=== PATIENT | male | born 1965 | race Two or more races ===

== ENCOUNTER 2017-05-23 20:23 | Inpatient (IN) | payer OTHER ==
[~2017-05-23] VITALS: Ht 182.9 cm; Wt 86.8 kg
[2017-05-23] MEDS ORDERED: ACETAMINOPHEN 325 MG TAB PO ONE (20:45)
[2017-05-23] MEDS ORDERED: cloNIDine HCL 0.1 MG TAB PO ONE (20:45)
[2017-05-23] MEDS ORDERED: SODIUM CHLORIDE 0.9% 1,000 ML IVB ONE (22:10)
[2017-05-23] MEDS ORDERED: ONDANSETRON HCL 4 MG/2 ML VIAL IV ONE (22:15)
[2017-05-23] MEDS ORDERED: KETOROLAC TROMETH 30 MG/ML 1ML VIAL IM ONE (22:15)
[2017-05-23] MEDS ORDERED: PROMETHAZINE W/CODEINE 5 ML ORAL SYRUP PO ONE (22:15)
[2017-05-23 22:28] LABS: Basophils # (auto) 0.1 uL; Eosinophils # (auto) 0.3 uL; Eosinophils % (auto) 2.4 % (0.0-7.0); Hemoglobin 13.7 g/dL (13.5-17.5); Lymphocytes # (auto) 1.1 uL; Lymphocytes % (auto) 9.1 % (10.0-50.0); Mean Corpuscular Hemoglobin 31.3 pg (28.0-32.0); Mean Corpuscular Hgb Conc. 34.2 g/dL (32.0-36.0); Mean Corpuscular Volume 91.3 fL (80.0-100.0); Monocytes # (auto) 1.1 uL; Monocytes % (auto) 9.1 % (0.0-12.0); Neutrophils # (auto) 9.5 uL; Neutrophils % (auto) 78.4 % (37.0-80.0); Nucleated Red Blood Cells % 0.1 %; Platelet Count (auto) 300 10^3/uL (140-450); Red Blood Cells 4.38 10^6/uL (4.5-5.90); Red Cell Distribution Width 12.8 % (11.8-14.3); White Blood Cell 12.2 10^3/uL (4.4-10.8)
[2017-05-23] MEDS ORDERED: LORazepam 2MG/ML-1ML VIAL IV ONE (22:45)
[2017-05-23 22:47] LABS: Alanine Aminotransferase 73 U/L (16-61); Albumin 2.6 g/dL (3.4-5.0); Alkaline Phosphatase 97 U/L (45-117); Anion Gap 11 (5-15); Aspartate Aminotransferase 76 U/L (15-37); BUN/Creatinine Ratio 14.7; Bilirubin, Total 0.3 mg/dL (0.2-1.0); Blood Urea Nitrogen 11 mg/dL (7-18); Calcium 8.4 mg/dL (8.5-10.1); Carbon Dioxide 22 mmol/L (21-32); Chloride 100 mmol/L (98-107); GFR African American 140 mL/min; GFR Non-African American 116 mL/min; Glucose 126 mg/dL (74-106); Potassium 3.6 mmol/L (3.5-5.1); Sodium 133 mmol/L (136-145); Total Protein 7.8 g/dL (6.4-8.2)
[2017-05-23 23:29] LABS: INR 1.2 (0.9-1.15); Partial Thromboplastin Time 35.2 sec (22.64-33.71); Prothrombin Time 13.1 sec (9.37-12.3)
[2017-05-24] MEDS ORDERED: CLINDAMYCIN 900MG IV 50 ML IV ONE (01:30)
[2017-05-24] MEDS ORDERED: PIPERACILLIN-TAZOB 3.375GM 50 ML IV ONE (01:30)
[2017-05-24] MEDS ORDERED: ALBUTEROL SULF 2.5 MG/0.5ML(0.5%) NEB SOLN NEB PRN (03:15)
[2017-05-24] MEDS ORDERED: ONDANSETRON HCL 4 MG/2 ML VIAL IV PRN (03:15)
[2017-05-24] MEDS ORDERED: NITROGLYCERIN 0.4 MG SL TAB SL PRN (03:15)
[2017-05-24] MEDS ORDERED: DEXTROSE (50%) 50ML SYRG IV PRN (03:15)
[2017-05-24] MEDS ORDERED: IPRATROPIUM BROM 0.5 MG/2.5ML INH SOL NEB PRN (03:15)
[2017-05-24] MEDS ORDERED: MORPHINE SULFATE 4 MG/ML SYR/VIAL IV PRN ×2 (03:15)
[2017-05-24 04:28] LABS: Basophils # (auto) 0 uL; Basophils % (auto) 0.4 % (0.0-2.0); Eosinophils # (auto) 0.3 uL; Eosinophils % (auto) 3.1 % (0.0-7.0); Hematocrit 38.4 % (41.0-53.0); Hemoglobin 13.2 g/dL (13.5-17.5); Lymphocytes # (auto) 1.2 uL; Lymphocytes % (auto) 11.5 % (10.0-50.0); Mean Corpuscular Hemoglobin 31.3 pg (28.0-32.0); Mean Corpuscular Hgb Conc. 34.3 g/dL (32.0-36.0); Mean Corpuscular Volume 91.3 fL (80.0-100.0); Monocytes # (auto) 1.3 uL; Neutrophils # (auto) 7.8 uL; Nucleated Red Blood Cells % 0.1 %; Platelet Count (auto) 282 10^3/uL (140-450); Red Cell Distribution Width 12.7 % (11.8-14.3); White Blood Cell 10.7 10^3/uL (4.4-10.8)
[2017-05-24 04:48] LABS: Calcium 8.3 mg/dL (8.5-10.1)
[2017-05-24] MEDS ORDERED: LISINOPRIL 20 MG TAB PO ONE (06:30)
[2017-05-24] MEDS: GABAPENTIN 300 MG CAP PO SCH ×3 (06:41→21:30)
[2017-05-24] MEDS: ACETAMINOPHEN 500 MG TAB PO PRN ×2 (06:41→17:04)
[2017-05-24] MEDS: ACCU-CHEK COMFORT CURVE STRIP VI SCH ×4 (06:46→21:30)
[2017-05-24] MEDS: InsuLIN REG 1unit/0.01ml Soln (100units/ml) SC SCH ×4 (06:47→21:31)
[2017-05-24 07:20] VITALS: BP 171/109
[2017-05-24] MEDS ORDERED: GABA-521 PO (07:36)
[2017-05-24] MEDS ORDERED: METF-370 PO (07:36)
[2017-05-24] MEDS ORDERED: HYDR25TA4 PO (07:36)
[2017-05-24] MEDS ORDERED: GLIP-116 PO (07:36)
[2017-05-24] MEDS ORDERED: LEVO750T2 PO (07:36)
[2017-05-24] MEDS ORDERED: LISI-646 PO (07:36)
[2017-05-24] MEDS ORDERED: DOXYCYCLINE HYC 100MG/250ML 250 ML IV SCH (08:00)
[2017-05-24 08:49] LABS: Potassium 3.3 mmol/L (3.5-5.1)
[2017-05-24 09:00] VITALS: BP 167/103
[2017-05-24] MEDS: HYDROcodone-ACET 5/325MG TAB PO PRN ×2 (10:57→21:19)
[2017-05-24] MEDS ORDERED: cloNIDine HCL 0.1 MG TAB PO ONE ×2 (12:45→13:00)
[2017-05-24 13:00] VITALS: BP 187/113
[2017-05-24 13:18] VITALS: BP 167/103
[2017-05-24] MEDS ORDERED: POTASSIUM CHL 20 Meq TABLET PO ONE (14:15)
[2017-05-24] MEDS ORDERED: cefTRIAXone 1GM/10ml IVPUSH 10 ML IV ONE (14:15)
[2017-05-24] MEDS ORDERED: HCTZ 25 MG TAB PO ONE (14:30)
[2017-05-24] MEDS ORDERED: AZITHROMYCIN 500MG/ 250ML 250 ML IV ONE (14:30)
[2017-05-24 16:47] VITALS: BP 176/108
[2017-05-24] MEDS: LABETALOL HCL 5 MG/ML ML 20ML VIAL IV PRN (17:00)
[2017-05-24] MEDS: ALBUTEROL SULF 2.5 MG/0.5ML(0.5%) NEB SOLN NEB SCH (19:22)
[2017-05-24] MEDS: IPRATROPIUM BROM 0.5 MG/2.5ML INH SOL NEB SCH (19:22)
[2017-05-24 22:00] VITALS: BP 154/88
[2017-05-25] MEDS: ACETYLCYSTEINE 10 %(100MG/ML) SOL 4ML NEB SCH ×5 (00:47→23:41)
[2017-05-25] MEDS: IPRATROPIUM BROM 0.5 MG/2.5ML INH SOL NEB SCH ×6 (00:47→23:41)
[2017-05-25] MEDS: ALBUTEROL SULF 2.5 MG/0.5ML(0.5%) NEB SOLN NEB SCH ×6 (00:47→23:41)
[2017-05-25] MEDS: HYDROcodone-ACET 5/325MG TAB PO PRN ×3 (03:43→22:20)
[2017-05-25 05:00] VITALS: BP 137/89
[2017-05-25 05:36] LABS: Basophils # (auto) 0.1 uL; Basophils % (auto) 0.5 % (0.0-2.0); Eosinophils # (auto) 0.3 uL; Hematocrit 37.1 % (41.0-53.0); Lymphocytes # (auto) 1.1 uL; Lymphocytes % (auto) 10.7 % (10.0-50.0); Mean Corpuscular Hgb Conc. 35.2 g/dL (32.0-36.0); Mean Corpuscular Volume 90.8 fL (80.0-100.0); Monocytes # (auto) 1.2 uL; Monocytes % (auto) 11.6 % (0.0-12.0); Neutrophils # (auto) 7.6 uL; Neutrophils % (auto) 74.2 % (37.0-80.0); Nucleated Red Blood Cells % 0.1 %; Platelet Count (auto) 362 10^3/uL (140-450); Red Blood Cells 4.08 10^6/uL (4.5-5.90); Red Cell Distribution Width 12.7 % (11.8-14.3); White Blood Cell 10.3 10^3/uL (4.4-10.8)
[2017-05-25 05:57] LABS: BUN/Creatinine Ratio 15.3; Calcium 8.6 mg/dL (8.5-10.1); Potassium 4.6 mmol/L (3.5-5.1)
[2017-05-25] MEDS: ACCU-CHEK COMFORT CURVE STRIP VI SCH ×4 (06:24→22:00)
[2017-05-25] MEDS: InsuLIN REG 1unit/0.01ml Soln (100units/ml) SC SCH ×4 (06:24→22:59)
[2017-05-25] MEDS: GABAPENTIN 300 MG CAP PO SCH ×3 (06:24→22:19)
[2017-05-25 08:14] VITALS: BP 163/91
[2017-05-25] MEDS ORDERED: LISINOPRIL 20 MG TAB PO SCH (10:00)
[2017-05-25] MEDS: AZITHROMYCIN 500MG/ 250ML 250 ML IV SCH (10:15)
[2017-05-25] MEDS: cefTRIAXone 1GM/10ml IVPUSH 10 ML IV SCH (10:15)
[2017-05-25] MEDS: HCTZ 25 MG TAB PO SCH (10:16)
[2017-05-25] MEDS: POTASSIUM CHL 20 Meq TABLET PO SCH (10:16)
[2017-05-25] MEDS ORDERED: IBUPROFEN 400 MG TAB PO PRN (12:45)
[2017-05-25] MEDS ORDERED: IBUPROFEN 400 MG TAB PO ONE (12:45)
[2017-05-25 13:23] VITALS: BP 148/105
[2017-05-25] MEDS: LABETALOL HCL 5 MG/ML ML 20ML VIAL IV PRN ×2 (16:14→23:35)
[2017-05-25 17:16] VITALS: BP 181/105
[2017-05-25 22:00] VITALS: BP 183/100
[2017-05-25] MEDS: LISINOPRIL 20 MG TAB PO SCH (22:19)
[2017-05-25] MEDS: guaiFENesin-DM 100/10mg/5ml SYR PO PRN (22:20)
[2017-05-25] MEDS: ACETAMINOPHEN 500 MG TAB PO PRN (23:50)
[2017-05-26 05:38] VITALS: BP 132/113
[2017-05-26] MEDS: ACCU-CHEK COMFORT CURVE STRIP VI SCH ×4 (06:35→22:06)
[2017-05-26] MEDS: InsuLIN REG 1unit/0.01ml Soln (100units/ml) SC SCH ×4 (06:37→22:06)
[2017-05-26] MEDS: HYDROcodone-ACET 5/325MG TAB PO PRN ×2 (06:40→22:08)
[2017-05-26] MEDS: GABAPENTIN 300 MG CAP PO SCH ×3 (06:40→22:05)
[2017-05-26] MEDS: IPRATROPIUM BROM 0.5 MG/2.5ML INH SOL NEB SCH ×4 (08:14→23:59)
[2017-05-26] MEDS: ALBUTEROL SULF 2.5 MG/0.5ML(0.5%) NEB SOLN NEB SCH ×4 (08:14→23:58)
[2017-05-26] MEDS: ACETYLCYSTEINE 10 %(100MG/ML) SOL 4ML NEB SCH ×4 (08:17→23:59)
[2017-05-26 08:27] VITALS: BP 148/83
[2017-05-26] MEDS: cefTRIAXone 1GM/10ml IVPUSH 10 ML IV SCH (10:03)
[2017-05-26] MEDS: HCTZ 25 MG TAB PO SCH (10:04)
[2017-05-26] MEDS: LISINOPRIL 20 MG TAB PO SCH ×2 (10:05→22:06)
[2017-05-26] MEDS: POTASSIUM CHL 20 Meq TABLET PO SCH (10:05)
[2017-05-26] MEDS: AZITHROMYCIN 500MG/ 250ML 250 ML IV SCH (10:05)
[2017-05-26] MEDS: ACETAMINOPHEN 500 MG TAB PO PRN (10:43)
[2017-05-26] MEDS ORDERED: SODIUM CHLORIDE 0.9% 1,000 ML IV ONE (10:45)
[2017-05-26] MEDS ORDERED: POTASSIUM CHL 20 Meq TABLET PO ONE (10:45)
[2017-05-26] MEDS: LABETALOL HCL 5 MG/ML ML 20ML VIAL IV PRN (11:42)
[2017-05-26 12:02] VITALS: BP 166/107
[2017-05-26] MEDS: ACETAMINOPHEN 325 MG TAB PO PRN ×2 (15:18→19:47)
[2017-05-26] MEDS: amLODIPine BESYLATE 5 MG TAB PO SCH (15:23)
[2017-05-26 15:55] VITALS: BP 150/97
[2017-05-26] MEDS: guaiFENesin-DM 100/10mg/5ml SYR PO PRN (22:08)
[2017-05-26 22:48] VITALS: BP 147/104
[2017-05-27] MEDS: ACETAMINOPHEN 325 MG TAB PO PRN (04:05)
[2017-05-27 05:17] VITALS: BP 164/118
[2017-05-27] MEDS: LABETALOL HCL 5 MG/ML ML 20ML VIAL IV PRN ×2 (05:22→21:02)
[2017-05-27] MEDS: GABAPENTIN 300 MG CAP PO SCH ×3 (05:34→22:24)
[2017-05-27] MEDS: HYDROcodone-ACET 5/325MG TAB PO PRN ×3 (05:35→18:15)
[2017-05-27] MEDS: guaiFENesin-DM 100/10mg/5ml SYR PO PRN ×3 (05:42→18:12)
[2017-05-27 05:54] LABS: Basophils # (auto) 0 uL; Basophils % (auto) 0.4 % (0.0-2.0); Eosinophils # (auto) 0.3 uL; Hemoglobin 13.9 g/dL (13.5-17.5); Lymphocytes % (auto) 8.6 % (10.0-50.0); Monocytes # (auto) 1.2 uL; Neutrophils % (auto) 78.8 % (37.0-80.0); Nucleated Red Blood Cells % 0.1 %
[2017-05-27 05:56] LABS: Eosinophils % (auto) 2.7 % (0.0-7.0); Hematocrit 39.9 % (41.0-53.0); Mean Corpuscular Hemoglobin 31.5 pg (28.0-32.0); Mean Corpuscular Volume 90.1 fL (80.0-100.0); Monocytes % (auto) 9.5 % (0.0-12.0); Neutrophils # (auto) 9.6 uL; Platelet Count (auto) 501 10^3/uL (140-450); Red Blood Cells 4.43 10^6/uL (4.5-5.90); Red Cell Distribution Width 12.7 % (11.8-14.3); White Blood Cell 12.2 10^3/uL (4.4-10.8)
[2017-05-27 06:02] LABS: Calcium 8.8 mg/dL (8.5-10.1); Potassium 4.6 mmol/L (3.5-5.1)
[2017-05-27] MEDS: InsuLIN REG 1unit/0.01ml Soln (100units/ml) SC SCH ×4 (06:37→22:24)
[2017-05-27] MEDS: ACCU-CHEK COMFORT CURVE STRIP VI SCH ×4 (06:37→22:24)
[2017-05-27] MEDS: IPRATROPIUM BROM 0.5 MG/2.5ML INH SOL NEB SCH ×3 (06:48→19:27)
[2017-05-27] MEDS: ACETYLCYSTEINE 10 %(100MG/ML) SOL 4ML NEB SCH ×3 (06:48→19:27)
[2017-05-27] MEDS: ALBUTEROL SULF 2.5 MG/0.5ML(0.5%) NEB SOLN NEB SCH ×3 (06:48→19:27)
[2017-05-27 08:00] VITALS: BP 135/92
[2017-05-27] MEDS: cefTRIAXone 1GM/10ml IVPUSH 10 ML IV SCH (09:29)
[2017-05-27] MEDS: LISINOPRIL 20 MG TAB PO SCH (10:00)
[2017-05-27] MEDS: amLODIPine BESYLATE 5 MG TAB PO SCH ×2 (10:00→12:18)
[2017-05-27] MEDS: HCTZ 25 MG TAB PO SCH ×2 (10:00→12:18)
[2017-05-27] MEDS: POTASSIUM CHL 20 Meq TABLET PO SCH (10:36)
[2017-05-27] MEDS: AZITHROMYCIN 500MG/ 250ML 250 ML IV SCH (10:36)
[2017-05-27] MEDS ORDERED: diphenhdrAMINE HCL 25 MG CAP PO ONE (10:45)
[2017-05-27] MEDS ORDERED: FLUCONAZOLE 200MG/100ML 100 ML IV ONE (11:00)
[2017-05-27 11:23] LABS: Albumin 2.5 g/dL (3.4-5.0); Bilirubin, Direct 0.1 mg/dL (0-0.2); Bilirubin, Total 0.5 mg/dL (0.2-1.0); Total Protein 8.3 g/dL (6.4-8.2)
[2017-05-27 12:00] VITALS: BP 148/107
[2017-05-27 14:31] VITALS: BP 148/107
[2017-05-27] MEDS: FLUCONAZOLE 200MG/100ML 100 ML IV SCH (15:01)
[2017-05-27 16:50] VITALS: BP 144/96
[2017-05-27] MEDS ORDERED: cefTRIAXone 1GM/10ml IVPUSH 10 ML IV ONE (18:00)
[2017-05-27] MEDS ORDERED: TEMAZEPAM 15 MG CAP PO ONE (20:45)
[2017-05-27 22:46] VITALS: BP 134/98
[2017-05-28] MEDS: ACETYLCYSTEINE 10 %(100MG/ML) SOL 4ML NEB SCH ×3 (00:55→18:42)
[2017-05-28] MEDS: IPRATROPIUM BROM 0.5 MG/2.5ML INH SOL NEB SCH ×4 (00:55→18:42)
[2017-05-28] MEDS: ALBUTEROL SULF 2.5 MG/0.5ML(0.5%) NEB SOLN NEB SCH ×4 (00:55→18:42)
[2017-05-28 05:25] VITALS: BP 130/102
[2017-05-28] MEDS: glipiZIDE 5 MG TAB PO SCH (06:26)
[2017-05-28] MEDS: GABAPENTIN 300 MG CAP PO SCH ×3 (06:38→22:31)
[2017-05-28] MEDS: ACCU-CHEK COMFORT CURVE STRIP VI SCH ×4 (06:38→22:16)
[2017-05-28] MEDS: InsuLIN REG 1unit/0.01ml Soln (100units/ml) SC SCH ×4 (06:38→22:31)
[2017-05-28] MEDS: HYDROcodone-ACET 5/325MG TAB PO PRN ×3 (06:59→22:33)
[2017-05-28 09:06] VITALS: BP 153/96
[2017-05-28 09:24] LABS: Basophils # (auto) 0.1 uL; Eosinophils # (auto) 0.3 uL; Eosinophils % (auto) 2.5 % (0.0-7.0); Nucleated Red Blood Cells % 0.1 %; White Blood Cell 13.6 10^3/uL (4.4-10.8)
[2017-05-28 09:27] LABS: Basophils % (auto) 0.7 % (0.0-2.0); Hematocrit 41.9 % (41.0-53.0); Hemoglobin 14.4 g/dL (13.5-17.5); Lymphocytes # (auto) 1.5 uL; Lymphocytes % (auto) 10.9 % (10.0-50.0); Mean Corpuscular Hemoglobin 31.1 pg (28.0-32.0); Mean Corpuscular Hgb Conc. 34.4 g/dL (32.0-36.0); Mean Corpuscular Volume 90.5 fL (80.0-100.0); Monocytes # (auto) 1.6 uL; Monocytes % (auto) 11.6 % (0.0-12.0); Neutrophils # (auto) 10.1 uL; Neutrophils % (auto) 74.3 % (37.0-80.0); Platelet Count (auto) 514 10^3/uL (140-450); Red Blood Cells 4.63 10^6/uL (4.5-5.90)
[2017-05-28 09:41] LABS: BUN/Creatinine Ratio 13.8; Potassium 4.6 mmol/L (3.5-5.1)
[2017-05-28] MEDS ORDERED: MEPERIDINE HCL (25 MG/ML) 1ML VIAL IM ONE (10:00)
[2017-05-28] MEDS ORDERED: VANCOMYCIN PER PHARMACY 0 MG IV SCH (10:00)
[2017-05-28] MEDS: POTASSIUM CHL 20 Meq TABLET PO SCH (10:00)
[2017-05-28] MEDS ORDERED: CEFTRIAXONE SODIUM 2 GM in D5W 5% 50 ML IV SCH (10:00)
[2017-05-28] MEDS ORDERED: LIDOCAINE HCL 2 % INJ 2ML MPF NEB ONE (10:00)
[2017-05-28] MEDS: amLODIPine BESYLATE 5 MG TAB PO SCH (10:00)
[2017-05-28] MEDS ORDERED: BENZOCAINE (DENTAL) 20 % SPRAY 60ML MT ONE (10:07)
[2017-05-28] MEDS ORDERED: LIDOCAINE 2%HCL (LOCAL ANESTH.) INJ 20ML MDV ONE (10:07)
[2017-05-28] MEDS ORDERED: SODIUM CHLORIDE LOCK 30 ML ONE (10:07)
[2017-05-28] MEDS ORDERED: EPINEPHrine HCL 1 MG/1 ML AMP ONE (10:08)
[2017-05-28] MEDS ORDERED: LIDOCAINE HCL 2% TOP JELLY 5ML TOP ONE (10:08)
[2017-05-28] MEDS: AZITHROMYCIN 500MG/ 250ML 250 ML IV SCH (10:27)
[2017-05-28] MEDS: SODIUM CHLORIDE 0.9% 1,000 ML IV SCH ×2 (10:27→19:10)
[2017-05-28 10:53] LABS: Albumin 2.5 g/dL (3.4-5.0); Bilirubin, Direct 0.1 mg/dL (0-0.2); Bilirubin, Total 0.3 mg/dL (0.2-1.0); Total Protein 8.4 g/dL (6.4-8.2)
[2017-05-28 11:14] LABS: Urine Bacteria NONE SEEN /hpf (None Seen); Urine Blood 1+ /uL (Negative); Urine Specific Gravity 1.008 (1.001-1.035); Urine WBC 1 /hpf (0 - 3)
[2017-05-28] MEDS ORDERED: PIPERACILLIN-TAZOB 3.375GM 50 ML IV SCH ×2 (12:00→16:15)
[2017-05-28 12:48] VITALS: BP 154/116
[2017-05-28] MEDS: MIDAZOLAM HCL 5 MG/ML-1ML VIAL ONE ×7 (13:40→13:52)
[2017-05-28] MEDS ORDERED: IOHEXOL 300 MG/ML 100ML BOTTLE IJ ONE (15:13)
[2017-05-28] MEDS ORDERED: LABETALOL HCL 5 MG/ML ML 20ML VIAL IV PRN (15:30)
[2017-05-28] MEDS ORDERED: LABETALOL HCL 5 MG/ML ML 20ML VIAL IV ONE (15:30)
[2017-05-28] MEDS: FLUCONAZOLE 200MG/100ML 100 ML IV SCH (15:51)
[2017-05-28] MEDS ORDERED: VANCOMYCIN 1,250 MG in D5W 5% 250 ML IV SCH (16:00)
[2017-05-28 17:12] VITALS: BP 136/107
[2017-05-28] MEDS: PIPERACILLIN-TAZOB 3.375GM 50 ML IV SCH ×2 (17:12→22:32)
[2017-05-28] MEDS: VANCOMYCIN 1,250 MG in D5W 5% 250 ML IV SCH (20:30)
[2017-05-28] MEDS: guaiFENesin-DM 100/10mg/5ml SYR PO PRN (21:57)
[2017-05-28] MEDS: LABETALOL HCL 5 MG/ML ML 20ML VIAL IV PRN (21:57)
[2017-05-28 22:00] VITALS: BP 161/101
[2017-05-28] MEDS ORDERED: TEMAZEPAM 15 MG CAP PO ONE (23:15)
[2017-05-29] MEDS: SODIUM CHLORIDE 0.9% 1,000 ML IV SCH ×2 (05:00→15:14)
[2017-05-29 05:30] VITALS: BP 152/102
[2017-05-29] MEDS: PIPERACILLIN-TAZOB 3.375GM 50 ML IV SCH ×4 (05:41→22:26)
[2017-05-29] MEDS: LABETALOL HCL 5 MG/ML ML 20ML VIAL IV PRN ×2 (06:06→11:32)
[2017-05-29] MEDS: GABAPENTIN 300 MG CAP PO SCH ×3 (06:07→22:26)
[2017-05-29] MEDS: ACETAMINOPHEN 325 MG TAB PO PRN ×3 (06:07→20:17)
[2017-05-29] MEDS: ACCU-CHEK COMFORT CURVE STRIP VI SCH ×4 (06:08→22:26)
[2017-05-29] MEDS: glipiZIDE 5 MG TAB PO SCH (06:31)
[2017-05-29] MEDS: InsuLIN REG 1unit/0.01ml Soln (100units/ml) SC SCH ×4 (06:32→22:29)
[2017-05-29 06:46] LABS: Basophils # (auto) 0.1 uL; Eosinophils # (auto) 0.3 uL; Lymphocytes # (auto) 1.2 uL
[2017-05-29 06:49] LABS: Basophils % (auto) 0.6 % (0.0-2.0); Eosinophils % (auto) 2.7 % (0.0-7.0); Hematocrit 41.1 % (41.0-53.0); Hemoglobin 14.1 g/dL (13.5-17.5); Lymphocytes % (auto) 9.3 % (10.0-50.0); Mean Corpuscular Hgb Conc. 34.2 g/dL (32.0-36.0); Mean Corpuscular Volume 90.7 fL (80.0-100.0); Monocytes # (auto) 1.1 uL; Monocytes % (auto) 8.9 % (0.0-12.0); Neutrophils # (auto) 10.1 uL; Neutrophils % (auto) 78.5 % (37.0-80.0); Platelet Count (auto) 545 10^3/uL (140-450); Red Blood Cells 4.53 10^6/uL (4.5-5.90); White Blood Cell 12.8 10^3/uL (4.4-10.8)
[2017-05-29] MEDS: IPRATROPIUM BROM 0.5 MG/2.5ML INH SOL NEB SCH ×5 (07:04→20:15)
[2017-05-29] MEDS: ALBUTEROL SULF 2.5 MG/0.5ML(0.5%) NEB SOLN NEB SCH ×5 (07:04→20:15)
[2017-05-29] MEDS: ACETYLCYSTEINE 10 %(100MG/ML) SOL 4ML NEB SCH ×5 (07:04→18:43)
[2017-05-29 07:05] LABS: Albumin 2.6 g/dL (3.4-5.0); Calcium 9.3 mg/dL (8.5-10.1); Potassium 5.1 mmol/L (3.5-5.1)
[2017-05-29 07:09] LABS: BUN/Creatinine Ratio 18.7
[2017-05-29 07:14] LABS: Bilirubin, Total 0.4 mg/dL (0.2-1.0); Total Protein 8.6 g/dL (6.4-8.2)
[2017-05-29 08:26] VITALS: BP 142/92
[2017-05-29] MEDS: VANCOMYCIN 1,250 MG in D5W 5% 250 ML IV SCH ×2 (08:34→20:00)
[2017-05-29] MEDS: amLODIPine BESYLATE 5 MG TAB PO SCH (09:53)
[2017-05-29] MEDS: AZITHROMYCIN 500MG/ 250ML 250 ML IV SCH (09:53)
[2017-05-29] MEDS: POTASSIUM CHL 20 Meq TABLET PO SCH (09:55)
[2017-05-29 11:21] LABS: INR 1.28 (0.9-1.15); Partial Thromboplastin Time 32.7 sec (22.64-33.71)
[2017-05-29] MEDS: guaiFENesin-DM 100/10mg/5ml SYR PO PRN ×2 (11:26→17:16)
[2017-05-29 11:45] VITALS: BP 155/102
[2017-05-29] MEDS: FLUCONAZOLE 200MG/100ML 100 ML IV SCH (13:26)
[2017-05-29 14:41] LABS: Hepatitis B Surface Antigen Negative (Negative)
[2017-05-29 14:53] LABS: Hepatitis B Core IgM Negative; Hepatitis C Antibody Negative (Negative)
[2017-05-29 14:55] LABS: Hepatitis A Ab IgM Negative
[2017-05-29 16:45] VITALS: BP 129/62
[2017-05-29 20:00] VITALS: BP 136/83
[2017-05-29] MEDS: HYDROcodone-ACET 5/325MG TAB PO PRN (22:27)
[2017-05-30] MEDS: ALBUTEROL SULF 2.5 MG/0.5ML(0.5%) NEB SOLN NEB SCH ×4 (00:32→11:50)
[2017-05-30] MEDS: IPRATROPIUM BROM 0.5 MG/2.5ML INH SOL NEB SCH ×4 (00:32→11:50)
[2017-05-30] MEDS: ACETYLCYSTEINE 10 %(100MG/ML) SOL 4ML NEB SCH ×4 (00:33→11:50)
[2017-05-30] MEDS: SODIUM CHLORIDE 0.9% 1,000 ML IV SCH ×3 (01:00→21:30)
[2017-05-30] MEDS: PIPERACILLIN-TAZOB 3.375GM 50 ML IV SCH (04:56)
[2017-05-30 05:00] VITALS: BP 160/102
[2017-05-30] MEDS: GABAPENTIN 300 MG CAP PO SCH ×3 (05:50→22:24)
[2017-05-30] MEDS: HYDROcodone-ACET 5/325MG TAB PO PRN ×4 (05:51→21:31)
[2017-05-30] MEDS: ACCU-CHEK COMFORT CURVE STRIP VI SCH ×4 (06:20→22:24)
[2017-05-30] MEDS: glipiZIDE 5 MG TAB PO SCH (06:20)
[2017-05-30] MEDS: InsuLIN REG 1unit/0.01ml Soln (100units/ml) SC SCH ×4 (06:21→22:26)
[2017-05-30 06:33] LABS: Eosinophils # (auto) 0.3 uL; Hemoglobin 13.9 g/dL (13.5-17.5)
[2017-05-30 06:39] LABS: Basophils # (auto) 0.1 uL; Basophils % (auto) 0.6 % (0.0-2.0); Eosinophils % (auto) 2.7 % (0.0-7.0); Hematocrit 40.5 % (41.0-53.0); Lymphocytes # (auto) 1.1 uL; Lymphocytes % (auto) 9.6 % (10.0-50.0); Mean Corpuscular Hemoglobin 30.6 pg (28.0-32.0); Mean Corpuscular Hgb Conc. 34.2 g/dL (32.0-36.0); Mean Corpuscular Volume 89.4 fL (80.0-100.0); Monocytes # (auto) 1.1 uL; Monocytes % (auto) 9.5 % (0.0-12.0); Neutrophils % (auto) 77.6 % (37.0-80.0); Platelet Count (auto) 527 10^3/uL (140-450); Red Blood Cells 4.53 10^6/uL (4.5-5.90); Red Cell Distribution Width 12.7 % (11.8-14.3); White Blood Cell 11.6 10^3/uL (4.4-10.8)
[2017-05-30 06:52] LABS: Albumin 2.5 g/dL (3.4-5.0); BUN/Creatinine Ratio 18.3; Bilirubin, Total 0.4 mg/dL (0.2-1.0); Calcium 8.8 mg/dL (8.5-10.1); Potassium 4.1 mmol/L (3.5-5.1); Total Protein 8.5 g/dL (6.4-8.2)
[2017-05-30 07:47] VITALS: BP 132/102
[2017-05-30] MEDS: POTASSIUM CHL 20 Meq TABLET PO SCH (10:14)
[2017-05-30] MEDS: amLODIPine BESYLATE 5 MG TAB PO SCH (10:15)
[2017-05-30] MEDS ORDERED: AZITHROMYCIN 500MG/ 250ML 250 ML IV SCH (10:45)
[2017-05-30] MEDS: guaiFENesin-DM 100/10mg/5ml SYR PO PRN ×3 (11:41→21:32)
[2017-05-30] MEDS ORDERED: PIPERACILLIN-TAZOB 3.375GM 50 ML IV SCH (12:00)
[2017-05-30 12:22] VITALS: BP 174/56
[2017-05-30] MEDS ORDERED: FLUCONAZOLE 200MG/100ML 100 ML IV SCH (13:30)
[2017-05-30] MEDS: VANCOMYCIN 1GM/250ML 250 ML IV SCH ×2 (15:30→21:31)
[2017-05-30] MEDS: LABETALOL HCL 5 MG/ML ML 20ML VIAL IV PRN (16:14)
[2017-05-30 17:08] VITALS: BP 168/109
[2017-05-30 17:16] VITALS: BP 172/81
[2017-05-30 21:50] VITALS: BP 146/96
[2017-05-31] MEDS: ALBUTEROL SULF 2.5 MG/0.5ML(0.5%) NEB SOLN NEB SCH ×4 (00:32→18:35)
[2017-05-31] MEDS: IPRATROPIUM BROM 0.5 MG/2.5ML INH SOL NEB SCH ×4 (00:32→18:35)
[2017-05-31] MEDS: ACETYLCYSTEINE 10 %(100MG/ML) SOL 4ML NEB SCH ×4 (00:32→18:00)
[2017-05-31] MEDS: VANCOMYCIN 1GM/250ML 250 ML IV SCH ×2 (02:59→09:27)
[2017-05-31] MEDS: GABAPENTIN 300 MG CAP PO SCH ×3 (04:44→22:47)
[2017-05-31] MEDS: SODIUM CHLORIDE 0.9% 1,000 ML IV SCH ×2 (04:44→18:02)
[2017-05-31] MEDS: InsuLIN REG 1unit/0.01ml Soln (100units/ml) SC SCH ×4 (04:45→22:47)
[2017-05-31] MEDS: glipiZIDE 5 MG TAB PO SCH (04:45)
[2017-05-31] MEDS: ACCU-CHEK COMFORT CURVE STRIP VI SCH ×4 (04:45→22:18)
[2017-05-31] MEDS: LABETALOL HCL 5 MG/ML ML 20ML VIAL IV PRN (04:46)
[2017-05-31 04:53] VITALS: BP 164/114
[2017-05-31 07:59] LABS: Eosinophils # (auto) 0.3 uL; Hemoglobin 12.8 g/dL (13.5-17.5); Lymphocytes # (auto) 1.2 uL; Red Cell Distribution Width 12.8 % (11.8-14.3)
[2017-05-31 08:01] LABS: Basophils # (auto) 0.1 uL; Basophils % (auto) 1.1 % (0.0-2.0); Eosinophils % (auto) 2.1 % (0.0-7.0); Hematocrit 36.5 % (41.0-53.0); Lymphocytes % (auto) 9.9 % (10.0-50.0); Mean Corpuscular Hemoglobin 31.6 pg (28.0-32.0); Mean Corpuscular Hgb Conc. 35.2 g/dL (32.0-36.0); Mean Corpuscular Volume 89.9 fL (80.0-100.0); Monocytes % (auto) 8.7 % (0.0-12.0); Neutrophils # (auto) 9.3 uL; Neutrophils % (auto) 78.2 % (37.0-80.0); Platelet Count (auto) 474 10^3/uL (140-450); Red Blood Cells 4.06 10^6/uL (4.5-5.90); White Blood Cell 11.8 10^3/uL (4.4-10.8)
[2017-05-31 08:25] LABS: Calcium 8.8 mg/dL (8.5-10.1); Potassium 4.4 mmol/L (3.5-5.1)
[2017-05-31 08:27] LABS: BUN/Creatinine Ratio 16.4
[2017-05-31 09:00] VITALS: BP 138/113
[2017-05-31] MEDS ORDERED: LEVOFLOXACIN 250 MG TAB PO SCH (10:00)
[2017-05-31] MEDS: POTASSIUM CHL 20 Meq TABLET PO SCH (11:18)
[2017-05-31] MEDS: amLODIPine BESYLATE 5 MG TAB PO SCH (11:19)
[2017-05-31] MEDS: HYDROcodone-ACET 5/325MG TAB PO PRN ×3 (11:37→20:36)
[2017-05-31 13:00] VITALS: BP 129/72
[2017-05-31] MEDS: guaiFENesin-DM 100/10mg/5ml SYR PO PRN ×2 (14:45→20:34)
[2017-05-31] MEDS: VANCOMYCIN 1,250 MG in D5W 5% 250 ML IV SCH ×2 (15:07→20:34)
[2017-05-31 17:00] VITALS: BP 139/82
[2017-05-31] MEDS ORDERED: MORPHINE SULFATE 4 MG/ML SYR/VIAL IV PRN (20:30)
[2017-05-31 22:00] VITALS: BP 144/91
[2017-06-01] MEDS: IPRATROPIUM BROM 0.5 MG/2.5ML INH SOL NEB SCH ×3 (00:48→19:32)
[2017-06-01] MEDS: ALBUTEROL SULF 2.5 MG/0.5ML(0.5%) NEB SOLN NEB SCH ×4 (00:48→19:33)
[2017-06-01] MEDS: SODIUM CHLORIDE 0.9% 1,000 ML IV SCH (02:53)
[2017-06-01] MEDS: VANCOMYCIN 1,250 MG in D5W 5% 250 ML IV SCH (02:53)
[2017-06-01 04:49] VITALS: BP 135/86
[2017-06-01] MEDS: ACCU-CHEK COMFORT CURVE STRIP VI SCH ×4 (06:22→22:18)
[2017-06-01] MEDS: InsuLIN REG 1unit/0.01ml Soln (100units/ml) SC SCH ×4 (06:22→22:00)
[2017-06-01] MEDS: GABAPENTIN 300 MG CAP PO SCH ×3 (06:36→21:40)
[2017-06-01] MEDS: glipiZIDE 5 MG TAB PO SCH (06:37)
[2017-06-01] MEDS: ACETYLCYSTEINE 10 %(100MG/ML) SOL 4ML NEB SCH ×4 (06:58→19:33)
[2017-06-01 08:21] LABS: Basophils # (auto) 0.1 uL; Eosinophils # (auto) 0.3 uL; Neutrophils % (auto) 76.4 % (37.0-80.0)
[2017-06-01] MEDS ORDERED: MIDAZOLAM HCL 1MG/1ML-2 ML VIAL ONE (08:22)
[2017-06-01] MEDS ORDERED: fentaNYL CITRATE 100 MCG/2 ML VL ONE (08:23)
[2017-06-01 08:25] LABS: Basophils % (auto) 0.9 % (0.0-2.0); Hematocrit 40.3 % (41.0-53.0); Hemoglobin 13.7 g/dL (13.5-17.5); Lymphocytes # (auto) 1.3 uL; Lymphocytes % (auto) 9.9 % (10.0-50.0); Mean Corpuscular Hemoglobin 30.7 pg (28.0-32.0); Mean Corpuscular Hgb Conc. 34.1 g/dL (32.0-36.0); Monocytes # (auto) 1.4 uL; Monocytes % (auto) 10.8 % (0.0-12.0); Platelet Count (auto) 480 10^3/uL (140-450); Red Blood Cells 4.48 10^6/uL (4.5-5.90)
[2017-06-01 08:36] LABS: Albumin 2.6 g/dL (3.4-5.0); BUN/Creatinine Ratio 14.9; Calcium 9.4 mg/dL (8.5-10.1); Potassium 5.4 mmol/L (3.5-5.1)
[2017-06-01 08:39] LABS: Bilirubin, Total 0.5 mg/dL (0.2-1.0)
[2017-06-01] MEDS ORDERED: LIDOCAINE 2%HCL (LOCAL ANESTH.) INJ 20ML MDV ONE (08:40)
[2017-06-01 09:00] VITALS: BP 151/102
[2017-06-01] MEDS ORDERED: LEVOFLOXACIN 250 MG TAB PO SCH (10:00)
[2017-06-01] MEDS: LEVOFLOXACIN 750MG 150 ML IV SCH (10:08)
[2017-06-01] MEDS: POTASSIUM CHL 20 Meq TABLET PO SCH (10:09)
[2017-06-01] MEDS: MEROPENEM 1gm/20ml IVPUSH 20 ML IV SCH ×2 (10:09→18:16)
[2017-06-01] MEDS: amLODIPine BESYLATE 5 MG TAB PO SCH (10:10)
[2017-06-01] MEDS: HYDROcodone-ACET 5/325MG TAB PO PRN ×3 (10:11→21:40)
[2017-06-01 12:30] VITALS: BP 119/78
[2017-06-01] MEDS: FLUCONAZOLE 200MG/100ML 100 ML IV SCH (13:17)
[2017-06-01] MEDS ORDERED: LIDOCAINE 1% HCL (LOCAL ANESTH.) INJ 20ML MDV ID ONE (15:15)
[2017-06-01 17:00] VITALS: BP 137/105
[2017-06-01] MEDS: guaiFENesin-DM 100/10mg/5ml SYR PO PRN ×2 (17:25→21:39)
[2017-06-01 22:00] VITALS: BP 133/92
[2017-06-01] MEDS: SODIUM CHLOR 0.9% PF (SALINE LOCK) 10ML VIAL IV SCH (22:18)
[2017-06-02] MEDS: IPRATROPIUM BROM 0.5 MG/2.5ML INH SOL NEB SCH ×4 (00:17→18:58)
[2017-06-02] MEDS: ACETYLCYSTEINE 10 %(100MG/ML) SOL 4ML NEB SCH ×4 (00:17→18:58)
[2017-06-02] MEDS: ALBUTEROL SULF 2.5 MG/0.5ML(0.5%) NEB SOLN NEB SCH ×4 (00:17→18:59)
[2017-06-02] MEDS: MEROPENEM 1gm/20ml IVPUSH 20 ML IV SCH ×3 (01:50→17:51)
[2017-06-02] MEDS: guaiFENesin-DM 100/10mg/5ml SYR PO PRN ×3 (05:09→22:37)
[2017-06-02] MEDS: HYDROcodone-ACET 5/325MG TAB PO PRN ×4 (05:09→22:37)
[2017-06-02 05:28] VITALS: BP 125/92
[2017-06-02] MEDS: GABAPENTIN 300 MG CAP PO SCH ×3 (06:13→22:19)
[2017-06-02 06:16] LABS: Potassium 4.2 mmol/L (3.5-5.1)
[2017-06-02 06:20] LABS: Albumin 2.4 g/dL (3.4-5.0); BUN/Creatinine Ratio 18.6; Calcium 8.8 mg/dL (8.5-10.1)
[2017-06-02 06:23] LABS: Bilirubin, Total 0.4 mg/dL (0.2-1.0); Total Protein 8.3 g/dL (6.4-8.2)
[2017-06-02] MEDS: InsuLIN REG 1unit/0.01ml Soln (100units/ml) SC SCH ×4 (07:00→22:00)
[2017-06-02] MEDS: glipiZIDE 5 MG TAB PO SCH (07:04)
[2017-06-02] MEDS: ACCU-CHEK COMFORT CURVE STRIP VI SCH ×4 (07:05→22:00)
[2017-06-02 09:00] VITALS: BP 138/98
[2017-06-02] MEDS: POTASSIUM CHL 20 Meq TABLET PO SCH (10:00)
[2017-06-02] MEDS: LEVOFLOXACIN 750MG 150 ML IV SCH (10:02)
[2017-06-02] MEDS: amLODIPine BESYLATE 5 MG TAB PO SCH (10:03)
[2017-06-02] MEDS: SODIUM CHLOR 0.9% PF (SALINE LOCK) 10ML VIAL IV SCH ×2 (10:03→22:19)
[2017-06-02] MEDS: FLUCONAZOLE 200MG/100ML 100 ML IV SCH ×2 (11:55→13:00)
[2017-06-02] MEDS ORDERED: LACTULOSE 20Gm/30ML SOLN PO ONE (12:30)
[2017-06-02] MEDS ORDERED: LACTULOSE 20Gm/30ML SOLN PO PRN (12:30)
[2017-06-02] MEDS: ACETAMINOPHEN 325 MG TAB PO PRN (14:10)
[2017-06-02 16:35] VITALS: BP 120/82
[2017-06-02] MEDS: Boost Glucose Control 8 Ounces PO SCH (18:15)
[2017-06-02] MEDS: PRO-STAT 64 30ML PO SCH (18:15)
[2017-06-02 22:00] VITALS: BP 154/91
[2017-06-02] MEDS: ZOLPIDEM TARTRATE 5 MG TAB PO PRN (23:57)
[2017-06-03] MEDS: IPRATROPIUM BROM 0.5 MG/2.5ML INH SOL NEB SCH ×4 (00:12→19:48)
[2017-06-03] MEDS: ALBUTEROL SULF 2.5 MG/0.5ML(0.5%) NEB SOLN NEB SCH ×4 (00:12→19:48)
[2017-06-03] MEDS: MEROPENEM 1gm/20ml IVPUSH 20 ML IV SCH ×3 (02:04→17:42)
[2017-06-03 05:00] VITALS: BP 126/103
[2017-06-03] MEDS: ACETAMINOPHEN 325 MG TAB PO PRN (05:14)
[2017-06-03] MEDS: GABAPENTIN 300 MG CAP PO SCH ×3 (06:06→22:00)
[2017-06-03] MEDS: ACETYLCYSTEINE 10 %(100MG/ML) SOL 4ML NEB SCH ×3 (06:21→19:48)
[2017-06-03 06:22] LABS: Basophils # (auto) 0.1 uL; Eosinophils # (auto) 0.2 uL; Hemoglobin 13.3 g/dL (13.5-17.5); Lymphocytes % (auto) 8.8 % (10.0-50.0); Mean Corpuscular Hemoglobin 30.5 pg (28.0-32.0); Mean Corpuscular Hgb Conc. 34.2 g/dL (32.0-36.0); Mean Corpuscular Volume 89.2 fL (80.0-100.0); Monocytes # (auto) 1.1 uL; Neutrophils # (auto) 8.6 uL; Neutrophils % (auto) 78.2 % (37.0-80.0); Platelet Count (auto) 407 10^3/uL (140-450); Red Blood Cells 4.36 10^6/uL (4.5-5.90); Red Cell Distribution Width 12.9 % (11.8-14.3)
[2017-06-03] MEDS: glipiZIDE 5 MG TAB PO SCH (06:33)
[2017-06-03 06:36] LABS: Albumin 2.5 g/dL (3.4-5.0); BUN/Creatinine Ratio 18.2; Bilirubin, Total 0.3 mg/dL (0.2-1.0); Calcium 9.2 mg/dL (8.5-10.1); Potassium 4.9 mmol/L (3.5-5.1); Total Protein 8.9 g/dL (6.4-8.2)
[2017-06-03] MEDS: ACCU-CHEK COMFORT CURVE STRIP VI SCH ×4 (07:00→22:00)
[2017-06-03] MEDS: InsuLIN REG 1unit/0.01ml Soln (100units/ml) SC SCH ×4 (07:00→22:00)
[2017-06-03 09:00] VITALS: BP 136/99
[2017-06-03] MEDS: Boost Glucose Control 8 Ounces PO SCH ×2 (10:09→17:42)
[2017-06-03] MEDS: PRO-STAT 64 30ML PO SCH ×2 (10:09→17:43)
[2017-06-03] MEDS: SODIUM CHLOR 0.9% PF (SALINE LOCK) 10ML VIAL IV SCH ×2 (10:22→22:00)
[2017-06-03] MEDS: LEVOFLOXACIN 750MG 150 ML IV SCH (10:22)
[2017-06-03] MEDS: amLODIPine BESYLATE 5 MG TAB PO SCH (10:23)
[2017-06-03] MEDS ORDERED: MICAFUNGIN SODIUM 100 MG in SODIUM CHL 0.9% 100 ML IV ONE (10:30)
[2017-06-03] MEDS ORDERED: AMIKACIN 0 ML IV SCH (11:30)
[2017-06-03 13:00] VITALS: BP 128/80
[2017-06-03] MEDS: AMIKACIN 1,500 MG in D5W 5% 100 ML IV SCH (13:44)
[2017-06-03] MEDS: guaiFENesin-DM 100/10mg/5ml SYR PO PRN ×2 (13:52→22:21)
[2017-06-03] MEDS: HYDROcodone-ACET 5/325MG TAB PO PRN ×2 (13:53→22:21)
[2017-06-03 17:00] VITALS: BP 126/85
[2017-06-03 22:00] VITALS: BP 127/84
[2017-06-03] MEDS: ZOLPIDEM TARTRATE 5 MG TAB PO PRN (23:31)
[2017-06-04] MEDS: MEROPENEM 1gm/20ml IVPUSH 20 ML IV SCH ×3 (02:03→18:48)
[2017-06-04 05:00] VITALS: BP 120/79
[2017-06-04] MEDS: ACETAMINOPHEN 325 MG TAB PO PRN ×2 (05:36→12:18)
[2017-06-04] MEDS: GABAPENTIN 300 MG CAP PO SCH ×3 (05:36→21:17)
[2017-06-04] MEDS: ACCU-CHEK COMFORT CURVE STRIP VI SCH ×4 (05:36→21:18)
[2017-06-04] MEDS: ALBUTEROL SULF 2.5 MG/0.5ML(0.5%) NEB SOLN NEB SCH ×4 (05:48→19:02)
[2017-06-04] MEDS: IPRATROPIUM BROM 0.5 MG/2.5ML INH SOL NEB SCH ×4 (05:48→19:02)
[2017-06-04] MEDS: ACETYLCYSTEINE 10 %(100MG/ML) SOL 4ML NEB SCH ×4 (05:49→19:02)
[2017-06-04] MEDS: InsuLIN REG 1unit/0.01ml Soln (100units/ml) SC SCH ×4 (06:11→21:29)
[2017-06-04] MEDS: glipiZIDE 5 MG TAB PO SCH (06:30)
[2017-06-04 08:30] VITALS: BP 136/88
[2017-06-04] MEDS ORDERED: MICAFUNGIN SODIUM 100 MG in SODIUM CHL 0.9% 100 ML IV SCH ×2 (10:00→13:30)
[2017-06-04] MEDS: PRO-STAT 64 30ML PO SCH ×2 (10:47→18:25)
[2017-06-04] MEDS: Boost Glucose Control 8 Ounces PO SCH ×2 (10:47→18:25)
[2017-06-04] MEDS: SODIUM CHLOR 0.9% PF (SALINE LOCK) 10ML VIAL IV SCH (10:48)
[2017-06-04] MEDS: LEVOFLOXACIN 750MG 150 ML IV SCH (10:49)
[2017-06-04] MEDS: amLODIPine BESYLATE 5 MG TAB PO SCH (10:49)
[2017-06-04 11:46] VITALS: BP 119/75
[2017-06-04] MEDS: AMIKACIN 1,500 MG in D5W 5% 100 ML IV SCH (12:00)
[2017-06-04] MEDS ORDERED: AMPHOTERICIN B IV ONE ×2 (13:15)
[2017-06-04] MEDS ORDERED: D5W 5% IV ONE ×2 (13:15)
[2017-06-04] MEDS ORDERED: SODIUM CHLORIDE 0.9% 1,000 ML IV ONE (14:30)
[2017-06-04] MEDS ORDERED: AMPHOTERICIN B IV SCH (15:00)
[2017-06-04] MEDS ORDERED: D5W 5% IV SCH (15:00)
[2017-06-04] MEDS: guaiFENesin-DM 100/10mg/5ml SYR PO PRN ×2 (15:03→21:32)
[2017-06-04] MEDS: HYDROcodone-ACET 5/325MG TAB PO PRN ×2 (15:03→21:17)
[2017-06-04] MEDS: SODIUM CHLORIDE 0.9% 1,000 ML IV SCH (15:30)
[2017-06-04 16:26] VITALS: BP 125/84
[2017-06-04] MEDS: diphenhdrAMINE HCL 50 MG/1 ML VL IV SCH (17:06)
[2017-06-04] MEDS: AMPHOTERICIN B IV SCH (17:07)
[2017-06-04] MEDS: ACETAMINOPHEN 325 MG TAB PO SCH (17:07)
[2017-06-04] MEDS: D5W 5% IV SCH (17:07)
[2017-06-04] MEDS: ZOLPIDEM TARTRATE 5 MG TAB PO PRN (21:16)
[2017-06-04 21:57] VITALS: BP 139/98
[2017-06-05] VITALS (7 sets, daily range): BP systolic 122–137; BP diastolic 81–103
[2017-06-05] MEDS: ALBUTEROL SULF 2.5 MG/0.5ML(0.5%) NEB SOLN NEB SCH ×4 (00:25→18:46)
[2017-06-05] MEDS: ACETYLCYSTEINE 10 %(100MG/ML) SOL 4ML NEB SCH ×4 (00:25→18:46)
[2017-06-05] MEDS: IPRATROPIUM BROM 0.5 MG/2.5ML INH SOL NEB SCH ×4 (00:25→18:45)
[2017-06-05] MEDS: SODIUM CHLORIDE 0.9% 1,000 ML IV SCH ×2 (01:30→11:29)
[2017-06-05] MEDS: MEROPENEM 1gm/20ml IVPUSH 20 ML IV SCH ×3 (03:08→18:16)
[2017-06-05] MEDS: SODIUM CHLOR 0.9% PF (SALINE LOCK) 10ML VIAL IV SCH ×3 (03:09→20:33)
[2017-06-05] MEDS: GABAPENTIN 300 MG CAP PO SCH ×3 (05:59→20:33)
[2017-06-05] MEDS: InsuLIN REG 1unit/0.01ml Soln (100units/ml) SC SCH ×2 (06:00→17:00)
[2017-06-05] MEDS: glipiZIDE 5 MG TAB PO SCH ×2 (06:00→18:17)
[2017-06-05] MEDS: ACCU-CHEK COMFORT CURVE STRIP VI SCH ×2 (06:01→17:12)
[2017-06-05 06:41] LABS: Basophils # (auto) 0.1 uL; Basophils % (auto) 1.1 % (0.0-2.0); Eosinophils # (auto) 0.2 uL; Eosinophils % (auto) 2.5 % (0.0-7.0); Hematocrit 35.7 % (41.0-53.0); Hemoglobin 12.2 g/dL (13.5-17.5); Lymphocytes # (auto) 1.2 uL; Lymphocytes % (auto) 12.2 % (10.0-50.0); Mean Corpuscular Hemoglobin 30.1 pg (28.0-32.0); Mean Corpuscular Hgb Conc. 34.1 g/dL (32.0-36.0); Mean Corpuscular Volume 88.4 fL (80.0-100.0); Monocytes % (auto) 9.9 % (0.0-12.0); Neutrophils # (auto) 7.3 uL; Neutrophils % (auto) 74.3 % (37.0-80.0); Platelet Count (auto) 344 10^3/uL (140-450); Red Blood Cells 4.04 10^6/uL (4.5-5.90); Red Cell Distribution Width 12.5 % (11.8-14.3); White Blood Cell 9.8 10^3/uL (4.4-10.8)
[2017-06-05 06:58] LABS: Potassium 4.7 mmol/L (3.5-5.1)
[2017-06-05 06:59] LABS: Albumin 2.4 g/dL (3.4-5.0); BUN/Creatinine Ratio 24.6
[2017-06-05 07:01] LABS: Bilirubin, Total 0.4 mg/dL (0.2-1.0); Total Protein 8.4 g/dL (6.4-8.2)
[2017-06-05] MEDS: ACETAMINOPHEN 325 MG TAB PO PRN (07:34)
[2017-06-05] MEDS: Boost Glucose Control 8 Ounces PO SCH ×2 (09:44→18:17)
[2017-06-05] MEDS: PRO-STAT 64 30ML PO SCH ×2 (09:45→18:17)
[2017-06-05] MEDS: amLODIPine BESYLATE 5 MG TAB PO SCH (09:46)
[2017-06-05] MEDS: LEVOFLOXACIN 750MG 150 ML IV SCH (10:30)
[2017-06-05] MEDS ORDERED: ONDANSETRON HCL 4 MG/2 ML VIAL IV PRN (11:15)
[2017-06-05] MEDS ORDERED: DEXTROSE (50%) 50ML SYRG IV PRN ×2 (11:15→14:30)
[2017-06-05] MEDS ORDERED: ACCU-CHEK COMFORT CURVE STRIP VI SCH (11:30)
[2017-06-05] MEDS ORDERED: InsuLIN REG 1unit/0.01ml Soln (100units/ml) SC SCH (11:30)
[2017-06-05] MEDS: AMIKACIN 1,500 MG in D5W 5% 100 ML IV SCH (12:00)
[2017-06-05] MEDS: diphenhdrAMINE HCL 50 MG/1 ML VL IV SCH (16:54)
[2017-06-05] MEDS: ACETAMINOPHEN 325 MG TAB PO SCH (16:54)
[2017-06-05] MEDS: AMPHOTERICIN B IV SCH (17:12)
[2017-06-05] MEDS: D5W 5% IV SCH (17:12)
[2017-06-05] MEDS: guaiFENesin-DM 100/10mg/5ml SYR PO PRN (20:14)
[2017-06-05] MEDS: HYDROcodone-ACET 5/325MG TAB PO PRN (20:32)
[2017-06-05] MEDS: ZOLPIDEM TARTRATE 5 MG TAB PO PRN (22:16)
[2017-06-06] MEDS: ALBUTEROL SULF 2.5 MG/0.5ML(0.5%) NEB SOLN NEB SCH ×4 (00:08→19:04)
[2017-06-06] MEDS: ACETYLCYSTEINE 10 %(100MG/ML) SOL 4ML NEB SCH ×4 (00:08→19:05)
[2017-06-06] MEDS: IPRATROPIUM BROM 0.5 MG/2.5ML INH SOL NEB SCH ×4 (00:08→19:04)
[2017-06-06] MEDS: SODIUM CHLORIDE 0.9% 1,000 ML IV SCH ×3 (02:11→17:44)
[2017-06-06] MEDS: MEROPENEM 1gm/20ml IVPUSH 20 ML IV SCH ×3 (02:12→18:03)
[2017-06-06 05:00] VITALS: BP 137/92
[2017-06-06] MEDS: GABAPENTIN 300 MG CAP PO SCH ×3 (05:51→22:51)
[2017-06-06] MEDS: InsuLIN REG 1unit/0.01ml Soln (100units/ml) SC SCH ×2 (05:52→17:44)
[2017-06-06] MEDS: ACCU-CHEK COMFORT CURVE STRIP VI SCH ×2 (05:52→17:44)
[2017-06-06] MEDS: glipiZIDE 5 MG TAB PO SCH ×2 (05:52→18:04)
[2017-06-06] MEDS: HYDROcodone-ACET 5/325MG TAB PO PRN ×2 (06:24→22:51)
[2017-06-06] MEDS: guaiFENesin-DM 100/10mg/5ml SYR PO PRN ×3 (06:24→20:15)
[2017-06-06 07:35] LABS: Albumin 2.3 g/dL (3.4-5.0); BUN/Creatinine Ratio 31.6; Calcium 9.2 mg/dL (8.5-10.1); Potassium 4.3 mmol/L (3.5-5.1)
[2017-06-06 07:41] LABS: Bilirubin, Total 0.8 mg/dL (0.2-1.0); Total Protein 8.4 g/dL (6.4-8.2)
[2017-06-06] MEDS: Boost Glucose Control 8 Ounces PO SCH ×2 (08:38→18:04)
[2017-06-06] MEDS: PRO-STAT 64 30ML PO SCH ×2 (08:38→18:04)
[2017-06-06 09:00] VITALS: BP 130/80
[2017-06-06] MEDS: amLODIPine BESYLATE 5 MG TAB PO SCH (10:59)
[2017-06-06] MEDS: LEVOFLOXACIN 750MG 150 ML IV SCH (10:59)
[2017-06-06] MEDS: SODIUM CHLOR 0.9% PF (SALINE LOCK) 10ML VIAL IV SCH ×2 (11:00→20:15)
[2017-06-06 13:00] VITALS: BP 117/98
[2017-06-06] MEDS: AMIKACIN 1,500 MG in D5W 5% 100 ML IV SCH (13:12)
[2017-06-06] MEDS: ACETAMINOPHEN 325 MG TAB PO PRN (15:05)
[2017-06-06 17:00] VITALS: BP 123/78
[2017-06-06] MEDS: ACETAMINOPHEN 325 MG TAB PO SCH (17:03)
[2017-06-06] MEDS: diphenhdrAMINE HCL 50 MG/1 ML VL IV SCH (17:04)
[2017-06-06] MEDS: D5W 5% IV SCH (17:43)
[2017-06-06] MEDS: AMPHOTERICIN B IV SCH (17:43)
[2017-06-06 22:00] VITALS: BP 140/99
[2017-06-06] MEDS: ZOLPIDEM TARTRATE 5 MG TAB PO PRN (22:51)
[2017-06-07] MEDS: ALBUTEROL SULF 2.5 MG/0.5ML(0.5%) NEB SOLN NEB SCH ×4 (00:34→18:38)
[2017-06-07] MEDS: IPRATROPIUM BROM 0.5 MG/2.5ML INH SOL NEB SCH ×4 (00:34→18:38)
[2017-06-07] MEDS: ACETYLCYSTEINE 10 %(100MG/ML) SOL 4ML NEB SCH ×4 (00:35→18:38)
[2017-06-07] MEDS: guaiFENesin-DM 100/10mg/5ml SYR PO PRN ×2 (00:54→21:11)
[2017-06-07] MEDS: MEROPENEM 1gm/20ml IVPUSH 20 ML IV SCH ×3 (02:30→17:06)
[2017-06-07] MEDS: SODIUM CHLORIDE 0.9% 1,000 ML IV SCH ×2 (03:30→12:08)
[2017-06-07 05:30] VITALS: BP 142/88
[2017-06-07] MEDS: InsuLIN REG 1unit/0.01ml Soln (100units/ml) SC SCH ×2 (06:48→17:07)
[2017-06-07] MEDS: GABAPENTIN 300 MG CAP PO SCH ×3 (06:48→22:15)
[2017-06-07] MEDS: glipiZIDE 5 MG TAB PO SCH ×2 (06:48→17:06)
[2017-06-07] MEDS: ACCU-CHEK COMFORT CURVE STRIP VI SCH ×2 (06:48→17:07)
[2017-06-07] MEDS: HYDROcodone-ACET 5/325MG TAB PO PRN ×2 (06:49→22:16)
[2017-06-07 08:00] VITALS: BP 132/83
[2017-06-07] MEDS: Boost Glucose Control 8 Ounces PO SCH ×2 (08:13→17:08)
[2017-06-07] MEDS: PRO-STAT 64 30ML PO SCH ×2 (08:49→17:22)
[2017-06-07 08:53] LABS: Albumin 2.2 g/dL (3.4-5.0); BUN/Creatinine Ratio 24.7; Bilirubin, Total 0.3 mg/dL (0.2-1.0); Calcium 8.4 mg/dL (8.5-10.1); Potassium 4.4 mmol/L (3.5-5.1)
[2017-06-07 12:00] VITALS: BP 122/77
[2017-06-07] MEDS: SODIUM CHLOR 0.9% PF (SALINE LOCK) 10ML VIAL IV SCH ×2 (12:07→22:15)
[2017-06-07] MEDS: amLODIPine BESYLATE 5 MG TAB PO SCH (12:08)
[2017-06-07] MEDS: LEVOFLOXACIN 750MG 150 ML IV SCH (12:09)
[2017-06-07] MEDS: AMIKACIN 1,500 MG in D5W 5% 100 ML IV SCH (12:30)
[2017-06-07] MEDS: ACETAMINOPHEN 325 MG TAB PO SCH (16:49)
[2017-06-07] MEDS: diphenhdrAMINE HCL 50 MG/1 ML VL IV SCH (16:50)
[2017-06-07] MEDS: D5W 5% IV SCH (17:07)
[2017-06-07] MEDS: AMPHOTERICIN B IV SCH (17:07)
[2017-06-07 17:16] VITALS: BP 148/95
[2017-06-07 22:00] VITALS: BP 135/90
[2017-06-07] MEDS: ZOLPIDEM TARTRATE 5 MG TAB PO PRN (22:15)
[2017-06-08] MEDS: SODIUM CHLORIDE 0.9% 1,000 ML IV SCH ×3 (00:13→22:22)
[2017-06-08] MEDS: ALBUTEROL SULF 2.5 MG/0.5ML(0.5%) NEB SOLN NEB SCH ×4 (00:16→18:40)
[2017-06-08] MEDS: IPRATROPIUM BROM 0.5 MG/2.5ML INH SOL NEB SCH ×4 (00:16→18:39)
[2017-06-08] MEDS: ACETYLCYSTEINE 10 %(100MG/ML) SOL 4ML NEB SCH ×4 (00:16→18:39)
[2017-06-08] MEDS: MEROPENEM 1gm/20ml IVPUSH 20 ML IV SCH ×3 (02:24→18:07)
[2017-06-08 05:00] VITALS: BP 135/86
[2017-06-08] MEDS: GABAPENTIN 300 MG CAP PO SCH ×3 (06:20→22:19)
[2017-06-08] MEDS: HYDROcodone-ACET 5/325MG TAB PO PRN ×5 (06:21→22:20)
[2017-06-08 06:45] LABS: Basophils # (auto) 0.1 uL; Basophils % (auto) 0.9 % (0.0-2.0); Eosinophils # (auto) 0.2 uL; Eosinophils % (auto) 2.7 % (0.0-7.0); Hematocrit 38.9 % (41.0-53.0); Hemoglobin 13.6 g/dL (13.5-17.5); Lymphocytes # (auto) 0.8 uL; Lymphocytes % (auto) 10.3 % (10.0-50.0); Mean Corpuscular Hemoglobin 30.7 pg (28.0-32.0); Mean Corpuscular Volume 87.8 fL (80.0-100.0); Monocytes # (auto) 0.9 uL; Monocytes % (auto) 12.1 % (0.0-12.0); Neutrophils # (auto) 5.5 uL; Nucleated Red Blood Cells % 0.1 %; Platelet Count (auto) 269 10^3/uL (140-450); Red Blood Cells 4.43 10^6/uL (4.5-5.90); Red Cell Distribution Width 13.2 % (11.8-14.3); White Blood Cell 7.5 10^3/uL (4.4-10.8)
[2017-06-08] MEDS: ACCU-CHEK COMFORT CURVE STRIP VI SCH ×2 (07:03→18:06)
[2017-06-08] MEDS: InsuLIN REG 1unit/0.01ml Soln (100units/ml) SC SCH ×2 (07:04→18:06)
[2017-06-08] MEDS: glipiZIDE 5 MG TAB PO SCH ×2 (07:05→18:07)
[2017-06-08 07:12] LABS: Albumin 2.6 g/dL (3.4-5.0); BUN/Creatinine Ratio 27.3; Bilirubin, Total 0.5 mg/dL (0.2-1.0); Calcium 9.6 mg/dL (8.5-10.1); Total Protein 8.8 g/dL (6.4-8.2)
[2017-06-08 08:00] VITALS: BP 129/86
[2017-06-08] MEDS: MORPHINE SULFATE 4 MG/ML SYR/VIAL IV PRN ×2 (08:06→15:39)
[2017-06-08] MEDS: PRO-STAT 64 30ML PO SCH ×2 (09:55→18:07)
[2017-06-08] MEDS: Boost Glucose Control 8 Ounces PO SCH ×2 (09:55→18:56)
[2017-06-08] MEDS: SODIUM CHLOR 0.9% PF (SALINE LOCK) 10ML VIAL IV SCH ×2 (09:58→22:21)
[2017-06-08] MEDS: amLODIPine BESYLATE 5 MG TAB PO SCH (09:58)
[2017-06-08] MEDS: LEVOFLOXACIN 750MG 150 ML IV SCH (09:58)
[2017-06-08 10:52] VITALS: BP 129/86
[2017-06-08 12:00] VITALS: BP 137/75
[2017-06-08] MEDS: AMIKACIN 1,500 MG in D5W 5% 100 ML IV SCH (15:40)
[2017-06-08] MEDS: ACETAMINOPHEN 325 MG TAB PO SCH ×2 (16:30→18:07)
[2017-06-08 17:00] VITALS: BP 135/83
[2017-06-08] MEDS: AMPHOTERICIN B IV SCH (17:00)
[2017-06-08] MEDS: D5W 5% IV SCH (17:00)
[2017-06-08] MEDS: guaiFENesin-DM 100/10mg/5ml SYR PO PRN ×2 (17:30→22:19)
[2017-06-08] MEDS: diphenhdrAMINE HCL 50 MG/1 ML VL IV SCH (17:36)
[2017-06-08 22:00] VITALS: BP 150/102
[2017-06-08] MEDS: ZOLPIDEM TARTRATE 5 MG TAB PO PRN (22:20)
[2017-06-09] MEDS: IPRATROPIUM BROM 0.5 MG/2.5ML INH SOL NEB SCH ×4 (00:52→19:00)
[2017-06-09] MEDS: ALBUTEROL SULF 2.5 MG/0.5ML(0.5%) NEB SOLN NEB SCH ×4 (00:52→19:00)
[2017-06-09] MEDS: MEROPENEM 1gm/20ml IVPUSH 20 ML IV SCH ×3 (02:08→17:48)
[2017-06-09 05:00] VITALS: BP 140/97
[2017-06-09] MEDS: GABAPENTIN 300 MG CAP PO SCH ×3 (05:37→21:48)
[2017-06-09] MEDS: SODIUM CHLORIDE 0.9% 1,000 ML IV SCH ×2 (05:49→15:13)
[2017-06-09] MEDS: ACETYLCYSTEINE 10 %(100MG/ML) SOL 4ML NEB SCH ×3 (06:00→19:00)
[2017-06-09] MEDS: HYDROcodone-ACET 5/325MG TAB PO PRN ×2 (06:07→21:48)
[2017-06-09] MEDS: InsuLIN REG 1unit/0.01ml Soln (100units/ml) SC SCH ×2 (06:44→18:26)
[2017-06-09] MEDS: ACCU-CHEK COMFORT CURVE STRIP VI SCH ×2 (06:44→18:25)
[2017-06-09] MEDS: glipiZIDE 5 MG TAB PO SCH ×2 (06:44→18:25)
[2017-06-09 08:30] VITALS: BP 138/88
[2017-06-09] MEDS: PRO-STAT 64 30ML PO SCH ×2 (10:04→17:49)
[2017-06-09] MEDS: Boost Glucose Control 8 Ounces PO SCH ×2 (10:04→17:49)
[2017-06-09] MEDS: SODIUM CHLOR 0.9% PF (SALINE LOCK) 10ML VIAL IV SCH ×2 (10:05→21:49)
[2017-06-09] MEDS: amLODIPine BESYLATE 5 MG TAB PO SCH (10:06)
[2017-06-09] MEDS: LEVOFLOXACIN 750MG 150 ML IV SCH (10:06)
[2017-06-09 11:27] VITALS: BP 126/60
[2017-06-09] MEDS: AMIKACIN 1,500 MG in D5W 5% 100 ML IV SCH (13:25)
[2017-06-09 16:29] VITALS: BP 124/56
[2017-06-09] MEDS: diphenhdrAMINE HCL 50 MG/1 ML VL IV SCH (17:48)
[2017-06-09] MEDS: ACETAMINOPHEN 325 MG TAB PO SCH (17:48)
[2017-06-09] MEDS: AMPHOTERICIN B IV SCH (18:25)
[2017-06-09] MEDS: D5W 5% IV SCH (18:25)
[2017-06-09 21:47] VITALS: BP 139/81
[2017-06-09] MEDS: ZOLPIDEM TARTRATE 5 MG TAB PO PRN (21:48)
[2017-06-09] MEDS: guaiFENesin-DM 100/10mg/5ml SYR PO PRN (22:20)
[2017-06-10] MEDS: MEROPENEM 1gm/20ml IVPUSH 20 ML IV SCH ×3 (02:23→18:55)
[2017-06-10] MEDS: SODIUM CHLORIDE 0.9% 1,000 ML IV SCH ×3 (02:25→21:30)
[2017-06-10 05:14] VITALS: BP 148/86
[2017-06-10] MEDS: ACETYLCYSTEINE 10 %(100MG/ML) SOL 4ML NEB SCH ×2 (05:51)
[2017-06-10] MEDS: ALBUTEROL SULF 2.5 MG/0.5ML(0.5%) NEB SOLN NEB SCH ×4 (05:51→19:59)
[2017-06-10] MEDS: IPRATROPIUM BROM 0.5 MG/2.5ML INH SOL NEB SCH ×4 (05:51→20:00)
[2017-06-10] MEDS: ACCU-CHEK COMFORT CURVE STRIP VI SCH ×2 (06:35→18:56)
[2017-06-10] MEDS: GABAPENTIN 300 MG CAP PO SCH ×3 (06:35→22:25)
[2017-06-10] MEDS: glipiZIDE 5 MG TAB PO SCH ×2 (06:35→18:59)
[2017-06-10] MEDS: InsuLIN REG 1unit/0.01ml Soln (100units/ml) SC SCH ×2 (06:36→19:10)
[2017-06-10] MEDS: HYDROcodone-ACET 5/325MG TAB PO PRN ×2 (06:37→22:26)
[2017-06-10 07:25] LABS: Basophils # (auto) 0.1 uL; Basophils % (auto) 0.7 % (0.0-2.0); Eosinophils # (auto) 0.3 uL; Eosinophils % (auto) 3.5 % (0.0-7.0); Hematocrit 35.5 % (41.0-53.0); Hemoglobin 12.2 g/dL (13.5-17.5); Lymphocytes # (auto) 1.3 uL; Lymphocytes % (auto) 15.9 % (10.0-50.0); Mean Corpuscular Hemoglobin 30.3 pg (28.0-32.0); Mean Corpuscular Hgb Conc. 34.5 g/dL (32.0-36.0); Monocytes # (auto) 1.2 uL; Monocytes % (auto) 14.1 % (0.0-12.0); Neutrophils # (auto) 5.5 uL; Neutrophils % (auto) 65.8 % (37.0-80.0); Nucleated Red Blood Cells % 0.1 %; Platelet Count (auto) 266 10^3/uL (140-450); Red Blood Cells 4.04 10^6/uL (4.5-5.90); Red Cell Distribution Width 12.7 % (11.8-14.3); White Blood Cell 8.4 10^3/uL (4.4-10.8)
[2017-06-10 07:39] LABS: BUN/Creatinine Ratio 31.8; Calcium 9.7 mg/dL (8.5-10.1); Potassium 4.6 mmol/L (3.5-5.1)
[2017-06-10] MEDS: PRO-STAT 64 30ML PO SCH ×2 (08:00→18:00)
[2017-06-10] MEDS: Boost Glucose Control 8 Ounces PO SCH ×2 (08:00→18:00)
[2017-06-10] MEDS ORDERED: MORPHINE SULFATE 4 MG/ML SYR/VIAL IV PRN (08:45)
[2017-06-10] MEDS ORDERED: AMIKACIN 0 ML IV SCH (08:45)
[2017-06-10] MEDS ORDERED: ACETAMINOPHEN 325 MG TAB PO PRN (08:45)
[2017-06-10 09:00] VITALS: BP 129/93
[2017-06-10] MEDS: SODIUM CHLOR 0.9% PF (SALINE LOCK) 10ML VIAL IV SCH ×2 (09:38→22:25)
[2017-06-10] MEDS: LEVOFLOXACIN 750MG 150 ML IV SCH (09:38)
[2017-06-10] MEDS: amLODIPine BESYLATE 5 MG TAB PO SCH (09:41)
[2017-06-10] MEDS: METOPROLOL SUCCINATE XL 50 MG TAB PO SCH (09:42)
[2017-06-10] MEDS: AMIKACIN 1,500 MG in D5W 5% 100 ML IV SCH (12:18)
[2017-06-10 13:00] VITALS: BP 160/94
[2017-06-10] MEDS ORDERED: diphenhdrAMINE HCL 50 MG/1 ML VL IV PRN (14:45)
[2017-06-10] MEDS: ACETAMINOPHEN 325 MG TAB PO SCH (15:52)
[2017-06-10 17:11] VITALS: BP 146/87
[2017-06-10] MEDS: AMPHOTERICIN B IV SCH (19:46)
[2017-06-10] MEDS: D5W 5% IV SCH (19:46)
[2017-06-10 22:00] VITALS: BP 173/105
[2017-06-10] MEDS: ZOLPIDEM TARTRATE 5 MG TAB PO PRN (22:27)
[2017-06-10] MEDS: guaiFENesin-DM 100/10mg/5ml SYR PO PRN (22:27)
[2017-06-11] MEDS: IPRATROPIUM BROM 0.5 MG/2.5ML INH SOL NEB SCH ×3 (00:33→11:28)
[2017-06-11] MEDS: ALBUTEROL SULF 2.5 MG/0.5ML(0.5%) NEB SOLN NEB SCH ×3 (00:33→11:28)
[2017-06-11] MEDS: MEROPENEM 1gm/20ml IVPUSH 20 ML IV SCH ×2 (02:15→09:42)
[2017-06-11 04:38] VITALS: BP 142/94
[2017-06-11] MEDS: GABAPENTIN 300 MG CAP PO SCH ×3 (06:21→23:33)
[2017-06-11] MEDS: HYDROcodone-ACET 5/325MG TAB PO PRN ×2 (06:22→23:34)
[2017-06-11] MEDS: ACCU-CHEK COMFORT CURVE STRIP VI SCH ×2 (06:35→17:27)
[2017-06-11] MEDS: glipiZIDE 5 MG TAB PO SCH ×2 (06:35→18:00)
[2017-06-11] MEDS: InsuLIN REG 1unit/0.01ml Soln (100units/ml) SC SCH ×2 (06:36→17:27)
[2017-06-11 09:00] VITALS: BP 137/92
[2017-06-11] MEDS: SODIUM CHLORIDE 0.9% 1,000 ML IV SCH ×2 (09:41→15:45)
[2017-06-11] MEDS: Boost Glucose Control 8 Ounces PO SCH ×2 (09:42→23:57)
[2017-06-11] MEDS: PRO-STAT 64 30ML PO SCH ×2 (09:42→18:00)
[2017-06-11] MEDS: SODIUM CHLOR 0.9% PF (SALINE LOCK) 10ML VIAL IV SCH ×2 (09:43→23:59)
[2017-06-11] MEDS: LEVOFLOXACIN 750MG 150 ML IV SCH (09:45)
[2017-06-11] MEDS: amLODIPine BESYLATE 5 MG TAB PO SCH (09:45)
[2017-06-11] MEDS: METOPROLOL SUCCINATE XL 50 MG TAB PO SCH (09:45)
[2017-06-11] MEDS: AMIKACIN 1,500 MG in D5W 5% 100 ML IV SCH (12:00)
[2017-06-11 13:00] VITALS: BP 147/91
[2017-06-11] MEDS: ACETAMINOPHEN 325 MG TAB PO SCH (16:30)
[2017-06-11] MEDS: D5W 5% IV SCH (17:00)
[2017-06-11] MEDS: AMPHOTERICIN B IV SCH (17:00)
[2017-06-11] MEDS ORDERED: IPRATROPIUM BROM 0.5 MG/2.5ML INH SOL NEB PRN (18:00)
[2017-06-11] MEDS ORDERED: ALBUTEROL SULF 2.5 MG/0.5ML(0.5%) NEB SOLN NEB PRN (18:00)
[2017-06-11 22:00] VITALS: BP 145/90
[2017-06-11] MEDS: ZOLPIDEM TARTRATE 5 MG TAB PO PRN (23:33)
[2017-06-11] MEDS: guaiFENesin-DM 100/10mg/5ml SYR PO PRN (23:34)
[2017-06-12] MEDS: MEROPENEM 1gm/20ml IVPUSH 20 ML IV SCH ×3 (01:37→17:59)
[2017-06-12 01:43] VITALS: BP 145/90
[2017-06-12 05:00] VITALS: BP 146/89
[2017-06-12 05:44] LABS: Basophils # (auto) 0.1 uL; Basophils % (auto) 0.6 % (0.0-2.0); Eosinophils # (auto) 0.2 uL; Eosinophils % (auto) 2.3 % (0.0-7.0); Hematocrit 32.7 % (41.0-53.0); Hemoglobin 11.5 g/dL (13.5-17.5); Lymphocytes # (auto) 1.4 uL; Lymphocytes % (auto) 14.4 % (10.0-50.0); Mean Corpuscular Hemoglobin 30.6 pg (28.0-32.0); Mean Corpuscular Hgb Conc. 35.2 g/dL (32.0-36.0); Monocytes # (auto) 0.9 uL; Monocytes % (auto) 10.1 % (0.0-12.0); Neutrophils # (auto) 6.8 uL; Neutrophils % (auto) 72.6 % (37.0-80.0); Nucleated Red Blood Cells % 0.1 %; Platelet Count (auto) 283 10^3/uL (140-450); Red Blood Cells 3.75 10^6/uL (4.5-5.90); White Blood Cell 9.4 10^3/uL (4.4-10.8)
[2017-06-12] MEDS: GABAPENTIN 300 MG CAP PO SCH ×3 (06:25→22:19)
[2017-06-12] MEDS: glipiZIDE 5 MG TAB PO SCH ×2 (06:25→17:59)
[2017-06-12] MEDS: HYDROcodone-ACET 5/325MG TAB PO PRN ×2 (06:26→22:20)
[2017-06-12 06:27] LABS: Albumin 2.5 g/dL (3.4-5.0); BUN/Creatinine Ratio 31.5; Bilirubin, Total 0.4 mg/dL (0.2-1.0); Calcium 9.9 mg/dL (8.5-10.1); Total Protein 8.1 g/dL (6.4-8.2)
[2017-06-12] MEDS: ACCU-CHEK COMFORT CURVE STRIP VI SCH ×2 (06:28→17:49)
[2017-06-12] MEDS: InsuLIN REG 1unit/0.01ml Soln (100units/ml) SC SCH ×2 (06:29→17:50)
[2017-06-12 06:38] LABS: Potassium 2.9 mmol/L (3.5-5.1)
[2017-06-12] MEDS ORDERED: POTASSIUM CHL 20 Meq TABLET PO ONE ×3 (06:45→15:30)
[2017-06-12] MEDS: SODIUM CHLORIDE 0.9% 1,000 ML IV SCH (08:25)
[2017-06-12 09:00] VITALS: BP 138/86
[2017-06-12] MEDS: PRO-STAT 64 30ML PO SCH ×2 (09:10→17:50)
[2017-06-12] MEDS: Boost Glucose Control 8 Ounces PO SCH ×2 (09:10→17:50)
[2017-06-12] MEDS: SODIUM CHLOR 0.9% PF (SALINE LOCK) 10ML VIAL IV SCH ×2 (10:53→22:19)
[2017-06-12] MEDS: LEVOFLOXACIN 750MG 150 ML IV SCH (10:54)
[2017-06-12] MEDS: METOPROLOL SUCCINATE XL 50 MG TAB PO SCH (10:54)
[2017-06-12] MEDS: amLODIPine BESYLATE 5 MG TAB PO SCH (10:55)
[2017-06-12] MEDS ORDERED: AML5T PO (11:05)
[2017-06-12] MEDS ORDERED: LEVO750T64 PO (11:05)
[2017-06-12] MEDS ORDERED: METO50TA7 PO (11:05)
[2017-06-12 13:00] VITALS: BP 137/93
[2017-06-12] MEDS: AMIKACIN 1,500 MG in D5W 5% 100 ML IV SCH (13:15)
[2017-06-12 17:00] VITALS: BP 133/91
[2017-06-12] MEDS: ACETAMINOPHEN 325 MG TAB PO SCH (17:17)
[2017-06-12] MEDS: AMPHOTERICIN B IV SCH (17:49)
[2017-06-12] MEDS: D5W 5% IV SCH (17:49)
[2017-06-12 22:08] VITALS: BP 141/86
[2017-06-12] MEDS: guaiFENesin-DM 100/10mg/5ml SYR PO PRN (22:20)
[2017-06-13] MEDS: SODIUM CHLORIDE 0.9% 1,000 ML IV SCH ×2 (01:05→22:30)
[2017-06-13] MEDS: MEROPENEM 1gm/20ml IVPUSH 20 ML IV SCH ×3 (02:35→18:38)
[2017-06-13] MEDS: ZOLPIDEM TARTRATE 5 MG TAB PO PRN ×2 (02:35→22:36)
[2017-06-13 06:08] VITALS: BP 149/90
[2017-06-13] MEDS: GABAPENTIN 300 MG CAP PO SCH ×3 (06:25→22:35)
[2017-06-13] MEDS: glipiZIDE 5 MG TAB PO SCH (06:26)
[2017-06-13] MEDS: InsuLIN REG 1unit/0.01ml Soln (100units/ml) SC SCH ×2 (06:26→17:00)
[2017-06-13] MEDS: ACCU-CHEK COMFORT CURVE STRIP VI SCH ×2 (06:26→17:22)
[2017-06-13 08:10] VITALS: BP 136/89
[2017-06-13] MEDS: Boost Glucose Control 8 Ounces PO SCH ×2 (08:48→18:38)
[2017-06-13] MEDS: PRO-STAT 64 30ML PO SCH ×2 (08:48→18:38)
[2017-06-13] MEDS: METOPROLOL SUCCINATE XL 50 MG TAB PO SCH (10:10)
[2017-06-13] MEDS: amLODIPine BESYLATE 5 MG TAB PO SCH (10:10)
[2017-06-13] MEDS: LEVOFLOXACIN 750MG 150 ML IV SCH (10:10)
[2017-06-13] MEDS: SODIUM CHLOR 0.9% PF (SALINE LOCK) 10ML VIAL IV SCH ×2 (10:11→22:00)
[2017-06-13] MEDS: HYDROcodone-ACET 5/325MG TAB PO PRN ×2 (10:38→22:36)
[2017-06-13 12:29] VITALS: BP 136/87
[2017-06-13] MEDS: AMIKACIN 1,500 MG in D5W 5% 100 ML IV SCH (12:58)
[2017-06-13 16:53] VITALS: BP_SYST 126; BP_SYST 147; BP_DIAS 80; BP_DIAS 86
[2017-06-13] MEDS: ACETAMINOPHEN 325 MG TAB PO SCH (17:17)
[2017-06-13] MEDS: AMPHOTERICIN B IV SCH (18:15)
[2017-06-13] MEDS: D5W 5% IV SCH (18:15)
[2017-06-13 22:00] VITALS: BP 157/85
[2017-06-14] MEDS: MEROPENEM 1gm/20ml IVPUSH 20 ML IV SCH ×3 (02:34→18:01)
[2017-06-14 05:00] VITALS: BP 149/87
[2017-06-14] MEDS: GABAPENTIN 300 MG CAP PO SCH ×3 (06:42→22:49)
[2017-06-14] MEDS: glipiZIDE 5 MG TAB PO SCH (06:43)
[2017-06-14] MEDS: ACCU-CHEK COMFORT CURVE STRIP VI SCH ×2 (06:43→18:00)
[2017-06-14] MEDS: InsuLIN REG 1unit/0.01ml Soln (100units/ml) SC SCH ×2 (06:43→18:01)
[2017-06-14] MEDS: Boost Glucose Control 8 Ounces PO SCH ×2 (07:59→18:01)
[2017-06-14] MEDS: PRO-STAT 64 30ML PO SCH ×2 (08:00→18:01)
[2017-06-14 09:00] VITALS: BP 139/87
[2017-06-14] MEDS: SODIUM CHLOR 0.9% PF (SALINE LOCK) 10ML VIAL IV SCH ×2 (10:00→22:19)
[2017-06-14] MEDS: LEVOFLOXACIN 250 MG TAB PO SCH (10:51)
[2017-06-14] MEDS: amLODIPine BESYLATE 5 MG TAB PO SCH (10:51)
[2017-06-14] MEDS: METOPROLOL SUCCINATE XL 50 MG TAB PO SCH (10:52)
[2017-06-14] MEDS: AMIKACIN 1,500 MG in D5W 5% 100 ML IV SCH (12:00)
[2017-06-14 13:00] VITALS: BP 149/89
[2017-06-14] MEDS: ACETAMINOPHEN 325 MG TAB PO SCH (16:45)
[2017-06-14 17:12] VITALS: BP 148/85
[2017-06-14] MEDS: AMPHOTERICIN B IV SCH (17:59)
[2017-06-14] MEDS: D5W 5% IV SCH (17:59)
[2017-06-14 22:34] VITALS: BP 150/80
[2017-06-14] MEDS: ZOLPIDEM TARTRATE 5 MG TAB PO PRN (22:49)
[2017-06-15] MEDS: MEROPENEM 1gm/20ml IVPUSH 20 ML IV SCH ×3 (02:05→18:51)
[2017-06-15] MEDS: HYDROcodone-ACET 5/325MG TAB PO PRN ×4 (02:06→22:27)
[2017-06-15 05:10] VITALS: BP 146/89
[2017-06-15 05:46] LABS: Basophils # (auto) 0 uL; Basophils % (auto) 0.3 % (0.0-2.0); Eosinophils # (auto) 0.1 uL; Eosinophils % (auto) 1.8 % (0.0-7.0); Hematocrit 31.5 % (41.0-53.0); Hemoglobin 11.1 g/dL (13.5-17.5); Lymphocytes # (auto) 1.5 uL; Lymphocytes % (auto) 19.1 % (10.0-50.0); Mean Corpuscular Hgb Conc. 35.1 g/dL (32.0-36.0); Mean Corpuscular Volume 85.4 fL (80.0-100.0); Monocytes # (auto) 0.6 uL; Monocytes % (auto) 7.7 % (0.0-12.0); Neutrophils # (auto) 5.6 uL; Neutrophils % (auto) 71.1 % (37.0-80.0); Nucleated Red Blood Cells % 0.1 %; Platelet Count (auto) 310 10^3/uL (140-450); Red Blood Cells 3.69 10^6/uL (4.5-5.90); Red Cell Distribution Width 12.9 % (11.8-14.3); White Blood Cell 7.9 10^3/uL (4.4-10.8)
[2017-06-15 06:25] LABS: Albumin 2.5 g/dL (3.4-5.0); BUN/Creatinine Ratio 25.3; Bilirubin, Total 0.5 mg/dL (0.2-1.0); Calcium 8.8 mg/dL (8.5-10.1); Total Protein 8.1 g/dL (6.4-8.2)
[2017-06-15 06:33] LABS: Potassium 2.4 mmol/L (3.5-5.1)
[2017-06-15] MEDS: GABAPENTIN 300 MG CAP PO SCH ×3 (06:38→22:26)
[2017-06-15] MEDS: InsuLIN REG 1unit/0.01ml Soln (100units/ml) SC SCH ×2 (06:39→17:10)
[2017-06-15] MEDS: ACCU-CHEK COMFORT CURVE STRIP VI SCH ×2 (06:39→17:00)
[2017-06-15] MEDS: glipiZIDE 5 MG TAB PO SCH (06:39)
[2017-06-15] MEDS ORDERED: POTASSIUM CHLORIDE 40 MEQ in D5W 5% 1,000 ML IV SCH (07:30)
[2017-06-15 08:00] VITALS: BP 121/74
[2017-06-15] MEDS: POTASSIUM CHL 20MEQ/100ML 100 ML IV SCH ×2 (09:02→12:26)
[2017-06-15] MEDS: Boost Glucose Control 8 Ounces PO SCH ×2 (09:02→18:51)
[2017-06-15] MEDS: PRO-STAT 64 30ML PO SCH ×2 (09:03→18:51)
[2017-06-15] MEDS ORDERED: LACTULOSE 20Gm/30ML SOLN PO PRN (09:15)
[2017-06-15] MEDS ORDERED: POTASSIUM CHL 20 Meq TABLET PO ONE (09:15)
[2017-06-15] MEDS: SODIUM CHLOR 0.9% PF (SALINE LOCK) 10ML VIAL IV SCH ×2 (10:20→22:26)
[2017-06-15] MEDS: LEVOFLOXACIN 250 MG TAB PO SCH (10:21)
[2017-06-15] MEDS: amLODIPine BESYLATE 5 MG TAB PO SCH (10:21)
[2017-06-15] MEDS: METOPROLOL SUCCINATE XL 50 MG TAB PO SCH (10:22)
[2017-06-15 12:00] VITALS: BP 141/93
[2017-06-15] MEDS: AMIKACIN 1,500 MG in D5W 5% 100 ML IV SCH (12:26)
[2017-06-15 17:00] VITALS: BP 133/82
[2017-06-15] MEDS: D5W 5% IV SCH (17:10)
[2017-06-15] MEDS: AMPHOTERICIN B IV SCH (17:10)
[2017-06-15 22:00] VITALS: BP 123/83
[2017-06-15] MEDS: ZOLPIDEM TARTRATE 5 MG TAB PO PRN (22:27)
[2017-06-16] MEDS: MEROPENEM 1gm/20ml IVPUSH 20 ML IV SCH ×3 (02:15→17:32)
[2017-06-16 05:00] VITALS: BP 152/86
[2017-06-16] MEDS: GABAPENTIN 300 MG CAP PO SCH ×3 (06:00→22:29)
[2017-06-16] MEDS: InsuLIN REG 1unit/0.01ml Soln (100units/ml) SC SCH ×2 (07:00→17:00)
[2017-06-16] MEDS: ACCU-CHEK COMFORT CURVE STRIP VI SCH ×2 (07:09→17:20)
[2017-06-16] MEDS: glipiZIDE 5 MG TAB PO SCH (07:09)
[2017-06-16] MEDS ORDERED: POTASSIUM CHL 20MEQ/100ML 100 ML IV ONE (08:15)
[2017-06-16] MEDS ORDERED: POTASSIUM CHL 20 Meq TABLET PO ONE ×2 (08:15→18:00)
[2017-06-16 08:40] VITALS: BP 155/93
[2017-06-16] MEDS ORDERED: MAGNESIUM SULFATE 1GM/100ML 100 ML IV ONE (09:15)
[2017-06-16] MEDS ORDERED: AMIKACIN 0 ML IV SCH (09:15)
[2017-06-16] MEDS: Boost Glucose Control 8 Ounces PO SCH ×2 (10:10→17:33)
[2017-06-16] MEDS: PRO-STAT 64 30ML PO SCH ×2 (10:11→17:34)
[2017-06-16] MEDS: LEVOFLOXACIN 250 MG TAB PO SCH (10:12)
[2017-06-16] MEDS: amLODIPine BESYLATE 5 MG TAB PO SCH (10:13)
[2017-06-16] MEDS: SODIUM CHLOR 0.9% PF (SALINE LOCK) 10ML VIAL IV SCH ×2 (10:14→22:00)
[2017-06-16] MEDS: METOPROLOL SUCCINATE XL 50 MG TAB PO SCH (10:40)
[2017-06-16] MEDS ORDERED: AMIKACIN 1,500 MG in D5W 5% 100 ML IV SCH (12:00)
[2017-06-16 13:04] VITALS: BP 133/93
[2017-06-16 16:58] VITALS: BP 133/85
[2017-06-16] MEDS: AMPHOTERICIN B IV SCH (18:50)
[2017-06-16] MEDS: D5W 5% IV SCH (18:50)
[2017-06-16 22:00] VITALS: BP 150/86
[2017-06-16] MEDS: ZOLPIDEM TARTRATE 5 MG TAB PO PRN (22:35)
[2017-06-16] MEDS: HYDROcodone-ACET 5/325MG TAB PO PRN (22:35)
[2017-06-17] MEDS: MEROPENEM 1gm/20ml IVPUSH 20 ML IV SCH ×3 (02:23→18:06)
[2017-06-17 05:09] LABS: Basophils # (auto) 0.1 uL; Basophils % (auto) 0.7 % (0.0-2.0); Eosinophils # (auto) 0.2 uL; Eosinophils % (auto) 2.2 % (0.0-7.0); Hematocrit 31.5 % (41.0-53.0); Hemoglobin 10.9 g/dL (13.5-17.5); Lymphocytes % (auto) 22.1 % (10.0-50.0); Mean Corpuscular Hemoglobin 29.6 pg (28.0-32.0); Mean Corpuscular Hgb Conc. 34.7 g/dL (32.0-36.0); Mean Corpuscular Volume 85.4 fL (80.0-100.0); Monocytes # (auto) 0.9 uL; Monocytes % (auto) 10.7 % (0.0-12.0); Neutrophils # (auto) 5.7 uL; Neutrophils % (auto) 64.3 % (37.0-80.0); Nucleated Red Blood Cells % 0.1 %; Platelet Count (auto) 307 10^3/uL (140-450); Red Blood Cells 3.68 10^6/uL (4.5-5.90); Red Cell Distribution Width 12.9 % (11.8-14.3); White Blood Cell 8.8 10^3/uL (4.4-10.8)
[2017-06-17 05:24] LABS: Albumin 2.5 g/dL (3.4-5.0); BUN/Creatinine Ratio 26.3; Bilirubin, Total 0.5 mg/dL (0.2-1.0); Calcium 8.7 mg/dL (8.5-10.1); Total Protein 8.2 g/dL (6.4-8.2)
[2017-06-17 05:33] LABS: Potassium 2.8 mmol/L (3.5-5.1)
[2017-06-17 06:00] VITALS: BP 131/85
[2017-06-17] MEDS: ACCU-CHEK COMFORT CURVE STRIP VI SCH ×2 (06:21→17:00)
[2017-06-17] MEDS: GABAPENTIN 300 MG CAP PO SCH ×3 (06:21→22:45)
[2017-06-17] MEDS: InsuLIN REG 1unit/0.01ml Soln (100units/ml) SC SCH ×2 (06:21→17:00)
[2017-06-17 09:00] VITALS: BP 133/90
[2017-06-17] MEDS ORDERED: POTASSIUM CHL 20 Meq TABLET PO ONE (09:00)
[2017-06-17] MEDS ORDERED: ZOLPIDEM TARTRATE 5 MG TAB PO PRN (09:00)
[2017-06-17] MEDS ORDERED: MORPHINE SULFATE 4 MG/ML SYR/VIAL IV PRN (09:00)
[2017-06-17] MEDS ORDERED: HYDROcodone-ACET 5/325MG TAB PO PRN (09:00)
[2017-06-17] MEDS: Boost Glucose Control 8 Ounces PO SCH ×2 (09:23→18:06)
[2017-06-17] MEDS: glipiZIDE 5 MG TAB PO SCH (09:23)
[2017-06-17] MEDS: PRO-STAT 64 30ML PO SCH ×2 (09:24→18:06)
[2017-06-17] MEDS: LEVOFLOXACIN 250 MG TAB PO SCH (09:34)
[2017-06-17] MEDS: SODIUM CHLOR 0.9% PF (SALINE LOCK) 10ML VIAL IV SCH ×2 (09:34→22:00)
[2017-06-17] MEDS: METOPROLOL SUCCINATE XL 50 MG TAB PO SCH (09:35)
[2017-06-17] MEDS: amLODIPine BESYLATE 5 MG TAB PO SCH (09:35)
[2017-06-17] MEDS ORDERED: POTA10TA51 PO (11:31)
[2017-06-17 12:24] VITALS: BP 121/70
[2017-06-17 13:00] VITALS: BP 147/94
[2017-06-17 17:00] VITALS: BP 125/86
[2017-06-17] MEDS: D5W 5% IV SCH (17:17)
[2017-06-17] MEDS: AMPHOTERICIN B IV SCH (17:17)
[2017-06-17 22:00] VITALS: BP 147/94
[2017-06-18] MEDS: MEROPENEM 1gm/20ml IVPUSH 20 ML IV SCH ×3 (02:00→18:00)
[2017-06-18 05:20] VITALS: BP 134/95
[2017-06-18] MEDS: InsuLIN REG 1unit/0.01ml Soln (100units/ml) SC SCH (06:47)
[2017-06-18] MEDS: ACCU-CHEK COMFORT CURVE STRIP VI SCH (06:47)
[2017-06-18] MEDS: glipiZIDE 5 MG TAB PO SCH (06:51)
[2017-06-18] MEDS: GABAPENTIN 300 MG CAP PO SCH ×2 (06:52→14:00)
[2017-06-18 07:25] LABS: BUN/Creatinine Ratio 27.9; Calcium 8.9 mg/dL (8.5-10.1); Magnesium 2.2 mg/dL (1.6-2.6)
[2017-06-18 07:32] LABS: Potassium 2.7 mmol/L (3.5-5.1)
[2017-06-18] MEDS: PRO-STAT 64 30ML PO SCH ×2 (08:00→18:00)
[2017-06-18 09:00] VITALS: BP 127/88
[2017-06-18] MEDS ORDERED: POTASSIUM CHL 20 Meq TABLET PO ONE (09:00)
[2017-06-18] MEDS: LEVOFLOXACIN 250 MG TAB PO SCH (09:27)
[2017-06-18] MEDS: SODIUM CHLOR 0.9% PF (SALINE LOCK) 10ML VIAL IV SCH (09:27)
[2017-06-18] MEDS: METOPROLOL SUCCINATE XL 50 MG TAB PO SCH (09:28)
[2017-06-18] MEDS: amLODIPine BESYLATE 5 MG TAB PO SCH (09:28)
[2017-06-18] MEDS: Boost Glucose Control 8 Ounces PO SCH ×2 (09:40→18:00)
[2017-06-18 12:57] VITALS: BP 127/88
[2017-06-18 13:00] VITALS: BP 147/89
[2017-06-18] MEDS ORDERED: POTASSIUM CHL 20 Meq TABLET PO SCH (14:00)
[2017-06-18] MEDS ORDERED: DEXTROSE (50%) 50ML SYRG IV PRN (14:30)
[2017-06-18] MEDS ORDERED: ONDANSETRON HCL 4 MG/2 ML VIAL IV PRN (14:30)
[2017-06-18] MEDS ORDERED: FLUC200T50 PO (14:41)
[2017-06-18 17:00] VITALS: BP 152/90
[2017-06-18] MEDS: AMPHOTERICIN B IV SCH (17:00)
[2017-06-18] MEDS: D5W 5% IV SCH (17:00)
[2017-06-18] MEDS ORDERED: InsuLIN REG 1unit/0.01ml Soln (100units/ml) SC SCH (17:00)
[2017-06-18] MEDS ORDERED: ACCU-CHEK COMFORT CURVE STRIP VI SCH (17:00)
[2017-06-18] MEDS ORDERED: GABAPENTIN 300 MG CAP PO SCH (22:00)
[2017-06-19] MEDS ORDERED: glipiZIDE 5 MG TAB PO SCH (07:00)
== END 2017-06-18 20:05 | disposition home or self-care (01) | DRG 853 ==
LOC: ER 20:23 → TELE 20:24 → TELE-WESTW 05-24 04:38 → WEST WING 06-02 14:32
PROVIDERS: ADMIT Nurse Practitioner Family; ATTEND Internal Medicine
PROC: 0B9G8ZZ Drainage of Left Upper Lung Lobe, Via Natural or Artificial Opening Endoscopic (ICD-10-PCS; principal; 2017-05-28 13:20)
PROC: 0BBG3ZX Excision of Left Upper Lung Lobe, Percutaneous Approach, Diagnostic (ICD-10-PCS; 2017-06-01)
PROC: 02HV33Z Insertion of Infusion Device into Superior Vena Cava, Percutaneous Approach (ICD-10-PCS; 2017-06-01)
DX: A41.9 Sepsis, unspecified organism (principal); J96.00 Acute respiratory failure, unspecified whether with hypoxia or hypercapnia; E43 Unspecified severe protein-calorie malnutrition; B44.9 Aspergillosis, unspecified; J15.8 Pneumonia due to other specified bacteria; E87.1 Hypo-osmolality and hyponatremia; B38.2 Pulmonary coccidioidomycosis, unspecified; T78.3XXA Angioneurotic edema, initial encounter; R91.8 Other nonspecific abnormal finding of lung field; T50.995A Adverse effect of other drugs, medicaments and biological substances, initial encounter; Z16.24 Resistance to multiple antibiotics; E87.5 Hyperkalemia; E87.6 Hypokalemia; E11.9 Type 2 diabetes mellitus without complications; K59.00 Constipation, unspecified; R79.89 Other specified abnormal findings of blood chemistry; E78.5 Hyperlipidemia, unspecified; F32.9 Major depressive disorder, single episode, unspecified; I10 Essential (primary) hypertension; Z85.118 Personal history of other malignant neoplasm of bronchus and lung; Z71.6 Tobacco abuse counseling; Y92.89 Other specified places as the place of occurrence of the external cause; Z72.0 Tobacco use; Z68.26 Body mass index [BMI] 26.0-26.9, adult
CPT/HCPCS: 10022; 31622; 32405; 36415; 36569; 36600; 71045; 71046; 71250; 71260; 76705; 77012; 80048; 80053; 80074; 80076; 80150; 80202; 81001; 82805; 82962; 83036; 83605; 83735; 83880; 84132; 84484; 85025; 85610; 85730; 86141; 86635; 86703; 87040; 87070; 87077; 87081; 87186; 87205; 87804; 94640; 94761; 96365; 96367; 96372; 96375; 96379; A4565; J0171; J0696; J1450; J1815; J1885; J1956; J2248; J2250; J2405; J2543; J3480; J3490; J7060